=== PATIENT | female | born 1950 | race Caucasian/White ===

== ENCOUNTER → 2020-12-05 12:00 | Outpatient (CLI) | payer OTHER, SELFPAY ==
--- NOTE | 2020-12-05 12:08 | DI.US.S_ITS ---
PROCEDURE: US ABD AORTA ANEURYSM SCREEN INDICATIONS: SCREENING TECHNIQUE: Real time scanning was performed of the aorta and iliac arteries, with image documentation. COMPARISON: None. FINDINGS: Aorta: Proximal aortic diameter measures 2.1 cm. Mid-aorta measures 1.9 cm. Distal aortic diameter is 1.7 cm. Iliac arteries: Right common iliac artery measures 0.9 cm. Left common iliac artery measures 0.9 cm. IMPRESSION: Normal abdominal aortic aneurysm. Dictated by: Duncan Bangura M.D. on 12/05/2020 at 12:53 Approved by: Duncan Bangura M.D. on 12/05/2020 at 12:54
== END ==
PROVIDERS: PCP Student in an Organized Health Care Education/Training Program; Referring Provider Student in an Organized Health Care Education/Training Program; Visit Provider Student in an Organized Health Care Education/Training Program
DX: M85.832 Other specified disorders of bone density and structure, left forearm (principal); Z13.6 Encounter for screening for cardiovascular disorders; Z78.0 Asymptomatic menopausal state; F17.200 Nicotine dependence, unspecified, uncomplicated; Z82.62 Family history of osteoporosis
CPT/HCPCS: 76706; 77080; 77081

== ENCOUNTER 2022-10-24 21:14 | Observation (INO) | payer OTHER, MEDICAID, SELFPAY ==
[2022-10-24 21:17] VITALS: PULSE 92; RESP 21
--- NOTE | 2022-10-24 21:17 | ED.GENADULT ---
HPI - General Adult General Chief complaint: Seizure Stated complaint: seizure-postictal- fell right eye lac Time Seen by Provider: 10/24/22 21:17 Source: patient, family and EMS Mode of arrival: EMS Limitations: no limitations History of Present Illness HPI narrative: Patient is a 72-year-old female. Has not on anticoagulation. Has a history of COPD. Also has a history of seizures. At 1 point was under the care of a neurologist. Does take Tegretol for her seizures. Is now being managed by her primary doctor. His reported that this evening the patient had what appeared to be a generalized tonic-clonic seizure. She was at home with the time. She was sitting on a stool at home. She was with family who stated that she fell off the stool and landed on her right side. She did hit her head. Was no loss of bowel or bladder but she was postictal afterwards. Seizure did resolve on its own. When EMS arrived they found the patient confused but maintaining her airway. IV was started. Transported to the emergency department. No antiseizure medication administered by EMS. Related Data Allergies Allergy/AdvReac Type Severity Reaction Status Date / Time No Known Drug Allergies Allergy Verified 10/24/22 22:12 Review of Systems Review of Systems ROS Unobtainable: All systems reviewed & are unremarkable except as noted in HPI and below Patient History Medical History COPD (chronic obstructive pulmonary disease) Seizures Social History Smoking Status: Current every day smoker Exam Initial Vital Signs Initial Vital Signs: Vital Signs Pulse Rate 92 H 10/24/22 21:17 Respiratory Rate 21 10/24/22 21:17 Const General: comfortable and No ill appearing [facility] Head: laceration (Superior and lateral to right eye) Nose: external nose normal Face and sinus: normal facial exam Resp Effort & Inspection: normal respiratory effort Auscultation: clear to auscultation bilaterally Cardio Rate: regular rate Rhythm: regular rhythm GI Inspection: normal to inspection and non-distended Palpation: soft and No tender Back/Spine/Pelvis Cervical Spine: No cervical spinal tenderness Skin Other: 2 cm laceration to the forehead that is just superior lateral to the right eye. Neuro Other: Upon arrival patient was alert but not oriented to person or situation. She did move all 4 extremities. Extrem Other: Pelvis is stable. No gross deformities. Procedures Laceration Repair Laceration 1: Site: face Side (If applicable): right Size (cm): 2 Description: linear Depth: simple, single layer Skin layer closed with: dermabond Course Orders Ordered: ED Orders 10/24/22 21:14 Complete Blood Count AUTO DIFF Stat Comprehensive Metabolic Panel Stat Ethanol (ETOH) Stat Lipase Stat 10/24/22 21:23 CT cervical spine wo con Stat CT head/brain wo con Stat XR shoulder RT min 2V Stat 10/24/22 21:24 EKG-12 Lead Stat 10/24/22 21:31 XR chest 1V Stat 10/25/22 00:39 XR hip w pel if done RT 2V Stat 10/25/22 02:20 COVID19 -Nasal RAPID Stat 10/25/22 02:31 Consult to Physician Stat Consult to Physician Urgent Sodium Chloride (Normal Saline 0.9%) 1,000 mls @ 125 mls/hr IV CONT DEMETRIS Last Admin: 10/24/22 22:23 Dose: 125 mls/hr Documented By: LEO Morphine Sulfate (Morphine 2 Mg/Ml Inj) 2 mg IV Q4HR PRN PRN Reason: Pain, Moderate (4-6) Ondansetron HCl (Ondansetron 4 Mg/2 Ml Inj) 4 mg IV Q4HR PRN PRN Reason: Nausea And Vomiting Discontinued Medications Hydrocodone Bitart/Acetaminophen (Hydrocodone/Acet 5/325 Tablet) 1 tab PO NOW ONE Stop: 10/24/22 21:44 Last Admin: 10/24/22 21:58 Dose: 1 tab Documented By: LEO Hydrocodone Bitart/Acetaminophen (Hydrocodone/Acet 5/325 Tablet) 1 tab PO NOW ONE Stop: 10/24/22 23:04 Last Admin: 10/24/22 23:08 Dose: 1 tab Documented By: LEO POTASSIUM CHLORIDE IN WATER (Potassium Cl 10 Meq/100 Ml Claudia) 10 meq in 100 mls @ 100 mls/hr IV Q1H [facility] Stop: 10/25/22 00:14 Last Infusion: 10/25/22 00:12 Dose: 0 mls/hr Documented By: Admin: 10/24/22 23:12 Dose: 100 mls/hr Documented By: Infusion: 05/25/23 23:11 Dose: 0 mls/hr Documented By: Admin: 10/24/22 22:15 Dose: 100 mls/hr Documented By: LEO Vital Signs Vital signs: Vital Signs - 8 hr 10/24/22 21:22 10/24/22 21:17 10/24/22 21:19 Temperature 97.7 F Pulse Rate 99 H 92 H Respiratory Rate 22 21 Blood Pressure 137/77 137/77 Pulse Oximetry 88 L Oxygen Delivery Method Room Air 10/24/22 21:19 10/24/22 21:40 10/24/22 22:00 Temperature Pulse Rate 89 86 77 Respiratory Rate 22 18 Blood Pressure Pulse Oximetry 88 L 90 L 93 Oxygen Delivery Method 10/24/22 22:30 Temperature Pulse Rate 87 Respiratory Rate 28 H Blood Pressure Pulse Oximetry 95 Oxygen Delivery Method Medical Decision Making Lab Data Lab results reviewed: Yes I reviewed the patient's lab results. 10/24/22 21:14 10/24/22 21:14 Labs: Lab Results 10/24/22 10/24/22 10/25/22 Range/Units 21:14 21:14 02:20 WBC 10.6 (4.5-11.0) X10^3/uL RBC 3.68 L (4.0-5.2) X10^6/uL Hgb 13.5 (12.0-16.0) g/dL Hct 38.5 (36-46) % MCV 104.5 H (80-100) fL MCH 36.5 H (26-34) PG MCHC 35.0 (30-36) % RDW 14.4 (11.6-14.8) % Plt Count 309 (150-400) X10^3/uL Neut % (Auto) 50.4 (50-75) % Lymph % (Auto) 42.1 H (25-40) % Boyd % (Auto) 5.5 (3-14) % Eos % (Auto) 1.6 L (2-4) % Baso % (Auto) 0.4 (0-2) % Neut # (Auto) 5300 (4892-2650) /uL Lymph # (Auto) 4500 (2215-5364) /uL [place] # (Auto) 600 (0-900) /uL Eos # (Auto) 200 (0-450) /uL Baso # (Auto) 0 (0-100) /uL Sodium 133 L (137-145) mmol/L Potassium 2.9 L (3.4-5.1) mmol/L Chloride 97 L (98-107) mmol/L Carbon Dioxide 18 L (22-32) mmol/L BUN 7 (7-17) mg/dL Creatinine 0.49 L (0.52-1.04) mg/dL Estimated GFR > 60 (>60) mL/min BUN/Creatinine Ratio 14.3 (6-22) Glucose 147 H (80-110) mg/dL Calcium 9.1 (8.4-10.2) mg/dL Total Bilirubin 0.3 (0.2-1.3) mg/dL AST 27 (14-36) IU/L ALT 31 (<35) IU/L Alkaline Phosphatase 67 (38-126) U/L Total Protein 7.3 (6.3-8.2) g/dL Albumin 4.6 (3.5-5.0) g/dL Globulin 2.7 (1.7-4.1) g/dL Albumin/Globulin Ratio 1.7 (1.0-2.8) Lipase 131 (23-300) U/L Ethyl Alcohol < 10 ( - 10) mg/dL SARS-CoV-2 (PCR) Negative (Negative) Imaging Data CT - cervical spine: Radiologist's Impression: PROCEDURE:? CT CERVICAL SPINE WO CON ? INDICATIONS:? seizure ? TECHNIQUE:? Noncontrast 3 mm thick sections acquired from the skull base to the T4 level.? Sagittal and coronal reformats were then constructed.? For radiation dose reduction, the following was used:? automated exposure control, adjustment of mA and/or kV according to patient size.? ? COMPARISON:? None. ? FINDINGS:? Image quality:? Excellent.? ? Bones:? No fractures or subluxation.? There is minimal anterolisthesis at C3-C4.? Multilevel degenerative disc disease and facet joint arthropathy demonstrated throughout the cervical spine.? Visualized superior ribs are intact.? ? Soft tissues:? Prevertebral soft tissues are normal in thickness.? No paravertebral hematomas.? No apical pneumothoraces.? ? ? IMPRESSION:? ? 1. No acute fracture or subluxation. CT scan - head: Radiologist's Impression: PROCEDURE:? CT HEAD/BRAIN WO CON ? INDICATIONS:? seizure and hit head ? TECHNIQUE:? Noncontrast 4.5 mm thick angled axial sections acquired from the foramen magnum to the vertex, with coronal and sagittal reformats.? For radiation dose reduction, the following was used:? automated exposure control, adjustment of mA and/or kV according to patient size.? ? COMPARISON:? None. ? FINDINGS:? Image quality:? Excellent.? ? CSF spaces:? Basal cisterns are patent.? No extra-axial fluid collections.? There is mild to moderate cerebral volume loss, with resultant ventricular and sulcal prominence.? There is also prominence of the extra-axial spaces bilaterally.? ? Brain:? No intracranial hemorrhage, mass, or mass effect.? There are subcortical, periventricular and deep white matter hypodensities consistent with mild chronic small vessel ischemic changes.? The kincaid-white matter junction appears preserved. ? ? Skull and face:? Calvarium and visualized facial bones appear intact, without suspicious lesions.? ? Sinuses:? Visualized sinuses and mastoids are clear.? ? IMPRESSION:? ? 1. No acute intracranial abnormality. ? 2.? Mild to moderate cerebral volume loss and mild chronic white matter small vessel ischemic changes.? Extremity x-ray #1: Radiologist's Impression: PROCEDURE:? XR SHOULDER RT MIN 2V ? INDICATIONS:? seizure and pain ? TECHNIQUE:? 2 views of the shoulder were acquired.? ? COMPARISON:? None. ? FINDINGS:? ? Bones:? There is a mildly comminuted fracture of the distal clavicle.? There is slight subluxation at the acromioclavicular joint.? No suspicious bony lesions.? Visualized ribs appear intact.? ? Soft tissues:? No suspicious soft tissue calcifications.? ? IMPRESSION:? ? 1. Mildly comminuted fracture of the distal right clavicle with slight subluxation of the right AC joint. Chest x-ray: Radiologist's Impression: PROCEDURE:? XR CHEST 1V ? INDICATIONS:? pain after fall ? TECHNIQUE:? One view of the chest was acquired.? ? COMPARISON:? None. ? FINDINGS:? ? Surgical changes and devices:? None.? ? Lungs and pleura:? There is bilateral mild interstitial prominence.? No pleural effusions or pneumothorax.? ? Mediastinum:? Mediastinal contours appear normal.? Heart size is normal.? ? Bones and chest wall:? No suspicious bony lesions.? Overlying soft tissues appear unremarkable.? ? IMPRESSION:? ? 1. Mild interstitial prominence may represent interstitial pulmonary edema versus chronic interstitial lung disease. Extremity x-ray #2: Radiologist's Impression: ?wall ROCEDURE:? XR HIP W PEL IF DONE RT 2V ? INDICATIONS:? pain after fall ? TECHNIQUE:? AP pelvis with lateral view of the right hip. ? COMPARISON:? None. ? FINDINGS:? ? Bones:? There are mildly displaced fractures of the right superior and inferior pubic rami.? There is dysmorphic appearance of the right hip suggestive of hip dysplasia with severe osteoarthritic changes, including severe joint space narrowing, subchondral sclerosis and cystic changes, and modeling along the articular surfaces including flattening of the femoral head.? Collar osteophytosis also demonstrated.? Associated a or vascular necrosis is not excluded. ? Soft tissues:? The visualized bowel gas pattern is normal.? No suspicious soft tissue calcifications.? ? IMPRESSION:? ? 1. Mildly displaced fractures of the right superior and inferior pubic rami. ? 2. 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 Avascular necrosis is also not excluded.? ECG Data Attestation: I personally reviewed and interpreted this ECG as follows: Interpretation: Sinus rhythm Ventricular rate 84 Normal axis Normal QRS Normal QTC No ST T wave changes MDM Narrative Medical decision making narrative: Upon arrival patient was obviously postictal. She has had no seizure activity since arrival here to the ER. Family did arrive at bedside and it appears that at least for the past week she potentially has not been taking her nightly antiseizure medications. Patient states she just forgets to do this. She has become more alert and oriented since her time here. Her head CT and cervical spine CT are unremarkable. The laceration above her right eye was closed with Dermabond and Steri-Strips per her request. She did not want any stitches. She does have a right distal clavicle fracture. Attempted to stand the patient at bedside however she did have severe right hip discomfort. X-ray was then obtained which shows a superior and inferior pubic rami fracture. Patient is unable to stand secondary to pain despite pain medication here in the ER. Given her other injury she does require admission to the hospital. I did discuss the case with Dr. Weber who is on-call for the patient's primary doctor. We will admit for further evaluation and treatment. I did discuss this with the patient and family at bedside. They expressed understanding and agreement as well. Discharge Plan Departure Patient Disposition: Admitted as Observation Clinical Impression: Generalized seizure, Fracture of clavicle, Fracture of superior ramus of right pubis, Fracture of right inferior pubic ramus, Laceration Admit Date/Time: 10/25/22 02:31 Admit Provider: Stanley Corona
[2022-10-24 21:19] VITALS: BP 137/77; PULSE 89; RESP 22; O2SAT 88
[2022-10-24 21:22] VITALS: BP 137/77; PULSE 99; RESP 22; TEMP 36.5; O2SAT 88
--- NOTE | 2022-10-24 21:23 | DI.CT.S_ITS ---
PROCEDURE: CT CERVICAL SPINE WO CON INDICATIONS: seizure TECHNIQUE: Noncontrast 3 mm thick sections acquired from the skull base to the T4 level. Sagittal and coronal reformats were then constructed. For radiation dose reduction, the following was used: automated exposure control, adjustment of mA and/or kV according to patient size. COMPARISON: None. FINDINGS: Image quality: Excellent. Bones: No fractures or subluxation. There is minimal anterolisthesis at C3-C4. Multilevel degenerative disc disease and facet joint arthropathy demonstrated throughout the cervical spine. Visualized superior ribs are intact. Soft tissues: Prevertebral soft tissues are normal in thickness. No paravertebral hematomas. No apical pneumothoraces. IMPRESSION: 1. No acute fracture or subluxation. Dictated by: Brett Escobar M.D. on 10/24/2022 at 21:58 Approved by: Brett Escobar M.D. on 10/24/2022 at 21:59
--- NOTE | 2022-10-24 21:23 | DI.CT.S_ITS ---
PROCEDURE: CT HEAD/BRAIN WO CON INDICATIONS: seizure and hit head TECHNIQUE: Noncontrast 4.5 mm thick angled axial sections acquired from the foramen magnum to the vertex, with coronal and sagittal reformats. For radiation dose reduction, the following was used: automated exposure control, adjustment of mA and/or kV according to patient size. COMPARISON: None. FINDINGS: Image quality: Excellent. CSF spaces: Basal cisterns are patent. No extra-axial fluid collections. There is mild to moderate cerebral volume loss, with resultant ventricular and sulcal prominence. There is also prominence of the extra-axial spaces bilaterally. Brain: No intracranial hemorrhage, mass, or mass effect. There are subcortical, periventricular and deep white matter hypodensities consistent with mild chronic small vessel ischemic changes. The kincaid-white matter junction appears preserved. Skull and face: Calvarium and visualized facial bones appear intact, without suspicious lesions. Sinuses: Visualized sinuses and mastoids are clear. IMPRESSION: 1. No acute intracranial abnormality. 2. Mild to moderate cerebral volume loss and mild chronic white matter small vessel ischemic changes. Dictated by: Brett Escobar M.D. on 10/24/2022 at 21:56 Approved by: Brett Escobar M.D. on 10/24/2022 at 21:58
--- NOTE | 2022-10-24 21:23 | DI.RAD.S_ITS ---
PROCEDURE: XR SHOULDER RT MIN 2V INDICATIONS: seizure and pain TECHNIQUE: 2 views of the shoulder were acquired. COMPARISON: None. FINDINGS: Bones: There is a mildly comminuted fracture of the distal clavicle. There is slight subluxation at the acromioclavicular joint. No suspicious bony lesions. Visualized ribs appear intact. Soft tissues: No suspicious soft tissue calcifications. IMPRESSION: 1. Mildly comminuted fracture of the distal right clavicle with slight subluxation of the right AC joint. Dictated by: Brett Escobar M.D. on 10/24/2022 at 22:38 Approved by: Brett Escobar M.D. on 10/24/2022 at 22:38
[2022-10-24 21:30] LABS: Add Manual Diff / Slide Review NO; Basophils Absolute Auto 0 /uL (0-100); Basophils Percent Auto 0.4 % (0-2); Eosinophils Absolute Auto 200 /uL (0-450); Eosinophils Percent Auto 1.6 % (2-4); Hematocrit 38.5 % (36-46); Hemoglobin 13.5 g/dL (12.0-16.0); Lymphocytes Absolute Auto 4500 /uL (1100-4500); Lymphocytes Percent Auto 42.1 % (25-40); Mean Corpuscular Hemoglobin 36.5 PG (26-34); Mean Corpuscular Volume 104.5 fL (80-100); Monocytes Absolute Auto 600 /uL (0-900); Monocytes Percent Auto 5.5 % (3-14); Neutrophils Absolute Auto 5300 /uL (1500-7000); Neutrophils Percent Auto 50.4 % (50-75); Platelet Count 309 X10^3/uL (150-400); Red Blood Cell Count 3.68 X10^6/uL (4.0-5.2); Red Cell Distribution Width 14.4 % (11.6-14.8); White Blood Cell Count 10.6 X10^3/uL (4.5-11.0)
--- NOTE | 2022-10-24 21:31 | DI.RAD.S_ITS ---
PROCEDURE: XR CHEST 1V INDICATIONS: pain after fall TECHNIQUE: One view of the chest was acquired. COMPARISON: None. FINDINGS: Surgical changes and devices: None. Lungs and pleura: There is bilateral mild interstitial prominence. No pleural effusions or pneumothorax. Mediastinum: Mediastinal contours appear normal. Heart size is normal. Bones and chest wall: No suspicious bony lesions. Overlying soft tissues appear unremarkable. IMPRESSION: 1. Mild interstitial prominence may represent interstitial pulmonary edema versus chronic interstitial lung disease. Dictated by: Brett Escobar M.D. on 10/24/2022 at 22:39 Approved by: Brett Escobar M.D. on 10/24/2022 at 22:39
[2022-10-24 21:40] VITALS: PULSE 86; O2SAT 90
[2022-10-24 21:41] LABS: Albumin 4.6 g/dL (3.5-5.0); Albumin Globulin Ratio 1.7 (1.0-2.8); Alkaline Phosphatase 67 U/L (38-126); Aspartate Aminotransferase 27 IU/L (14-36); BUN Creatinine Ratio 14.3 (6-22); Bilirubin Total 0.3 mg/dL (0.2-1.3); Blood Urea Nitrogen 7 mg/dL (7-17); Calcium 9.1 mg/dL (8.4-10.2); Carbon Dioxide 18 mmol/L (22-32); Chloride 97 mmol/L (98-107); Estimated Glomerular Filt Rate > 60 mL/min (>60); Ethanol (ETOH) < 10 mg/dL; Globulin 2.7 g/dL (1.7-4.1); Glucose 147 mg/dL (80-110); HEMOLYSIS < 15 (0-50); Lipase 131 U/L (23-300); Potassium 2.9 mmol/L (3.4-5.1); Sodium 133 mmol/L (137-145); Total Protein 7.3 g/dL (6.3-8.2)
[2022-10-24 21:47] LABS: Alanine Aminotransferase 31 IU/L (<35)
[2022-10-24] MEDS: HYDROCODONE/ACET 5/325 TABLET 1 TAB PO ×2 (21:58→23:08)
[2022-10-24 22:00] VITALS: PULSE 77; RESP 18; O2SAT 93
[2022-10-24] MEDS: POTASSIUM CHLORIDE IN WATER 10 MEQ/100 ML PIGGYBACK 100 MEQ IV ×2 (22:15→23:12)
[2022-10-24] MEDS: SODIUM CHLORIDE 0.9% 1,000 ML 125 ML IV (22:23)
[2022-10-24 22:30] VITALS: PULSE 87; RESP 28; O2SAT 95
--- NOTE | 2022-10-25 00:39 | DI.RAD.S_ITS ---
P wall ROCEDURE: XR HIP W PEL IF DONE RT 2V INDICATIONS: pain after fall TECHNIQUE: AP pelvis with lateral view of the right hip. COMPARISON: None. FINDINGS: Bones: There are mildly displaced fractures of the right superior and inferior pubic rami. There is dysmorphic appearance of the right hip suggestive of hip dysplasia with severe osteoarthritic changes, including severe joint space narrowing, subchondral sclerosis and cystic changes, and modeling along the articular surfaces including flattening of the femoral head. Collar osteophytosis also demonstrated. Associated a or vascular necrosis is not excluded. Soft tissues: The visualized bowel gas pattern is normal. No suspicious soft tissue calcifications. IMPRESSION: 1. Mildly displaced fractures of the right superior and inferior pubic rami. 2. 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 Avascular necrosis is also not excluded. Dictated by: Brett Escobar M.D. on 10/25/2022 at 1:59 Approved by: Brett Escobar M.D. on 10/25/2022 at 2:02
[2022-10-25 02:37] LABS: COVID19 -Nasal RAPID Negative (Negative)
[2022-10-25 03:20] VITALS: BP 144/72; PULSE 74; RESP 16; TEMP 37.2; O2SAT 93
[2022-10-25 03:38] VITALS: BMI 19.2
[2022-10-25] MEDS: MORPHINE 2 MG/ML INJ IV ×2 (03:48→08:22)
[2022-10-25] MEDS: SODIUM CHLORIDE 0.9% 1,000 ML 125 ML IV (03:58)
[2022-10-25 08:32] VITALS: BP 152/74; PULSE 72; RESP 16; TEMP 37.1; O2SAT 91
--- NOTE | 2022-10-25 10:46 | CM.DANOTE ---
Addendum entered by EDISON Oshea 10/26/22 13:58: ADD: Confirmed with Tracy at [facility] that they accept patient's [facility] Addendum entered by EDISON Oshea 10/25/22 11:03: ADD: Ortho consult note in; fractures nonoperative. Hip - WBAT to RLE Original Note: Initial DCP Assessment Note Patient is a 72 yo F presents from her home after a witnessed seizure and subsequent fall, now with hip and shoulder fx per imaging Information gleaned from ER report and from patient, no H+P currently PCP [facility] Payer [facility] Met w/patient to introduce self and role, patient A+Ox4. 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 Patient had been living in [place] working for [employer] until transferring to [facility] to be closer to her children and grandchildren Patient retired a year ago and has been living w/her family since that time. Patient receives approx $1,000 in mo and uses food stamps to assist w/cost of food Patient hopes to return home w/her family but admits daughter is on disability r/t a severe car accident a year ago resulting in brain surgery and ongoing neck problems. 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 If patient is recommended for SNF stay, a pre-auth will be required through [facility] and therapy notes will need to document patient's need for SNF ...We are going into a long holiday weekend now so Friday would be the soonest for this process to begin EDISON Still Discharge Planning/Care Management CM Discharge Assessment Start: 10/25/22 10:42 Freq: Status: Active Protocol: Document 10/25/22 10:43 ZEKE (Rec: 10/25/22 10:46 ZEKE [id number]) Discharge Planning Assessment Assigned Licsw EDISON Bravo DPOA/Assigned Designee Name jorge l Orr Contact Information [phone] Advance Directives? Yes Advance Directives on File No History Provided By Patient,Medical Record Prior Living Arrangements House Household Members children Type of transporation used prior to Drives own vehicle admit Independent with ADL's Yes Is patient alert and oriented? Yes Comment TBD Barriers to Discharge Yes Comment New fractures from fall Transportation Arrangement TBD
--- NOTE | 2022-10-25 10:52 | P.CONS_ITS ---
History of Present Illness Consult details Date Patient Seen: 10/25/22 Time Patient Seen: 10:52 Chief complaint: seizure-postictal- fell right eye lac Reason for consult: clavicle fx, pelvic fx Narrative: 72 yo female w/ seizure history was sitting at home on a barstool watching a sporting event, game ended and she doesn't remember anything after that. Witnesses say she had a seizure and fell. W/u in ED positive for right clavicle fx and right superior and inferior rami fxs. Pt currently sitting up in bed, c/o right arm pain. Meds Home Medications and Allergies Home Medications Medication Instructions Recorded Confirmed Type carbamazepine 200 mg tablet 200 mg PO 2XD 10/25/22 10/25/22 History fluoxetine 20 mg capsule 20 mg PO QAM 10/25/22 10/25/22 History levothyroxine 88 mcg tablet 88 mcg PO QAM 10/25/22 10/25/22 History potassium chloride 10 mEq 10 meq PO DAILY 10/25/22 10/25/22 History tablet,extended release pravastatin 40 mg tablet 40 mg PO DAILY 10/25/22 10/25/22 History Allergies Allergy/AdvReac Type Severity Reaction Status Date / Time No Known Drug Allergies Allergy Verified 10/24/22 22:12 Review of Systems Review of Systems ROS: Yes All systems reviewed with the patient and are negative except as otherwise documented Exam Vital Signs (past 8 hours): - 10/25/22 03:20 10/25/22 03:38 10/25/22 08:32 Temperature 99.0 F 98.8 F Pulse Rate 74 72 Respiratory Rate 16 16 Blood Pressure 144/72 H 152/74 H Pulse Oximetry 93 91 Oxygen Delivery Method Room Air Oxygen Flow Rate 0 Oxygen Delivery Method Room Air Oxygen Flow Rate 0 Narrative Exam Narrative: 3/5 hip flexion, 4/5 quadriceps, hamstrings, 5/5 DF, PF, EHL on right. Sensation to light touch intact throughout RLE. No obvious RLE deformity or b ruising noted. 5/5 plasterer helper strength, biceps, triceps, deltoids on R. Bruising noted along R distal clavicle. Sensation to light touch intact throughout RUE. Const General: cooperative and comfortable Nutritional Appearance: underweight Orientation: alert, awake and oriented x3 Eyes Other: Laceration above right lateral orbit. Objective Labs 10/24/22 21:14 10/24/22 21:14 Labs: Laboratory Results - last 24 hr 10/24/22 10/24/22 10/25/22 21:14 21:14 02:20 WBC 10.6 RBC 3.68 L Hgb 13.5 Hct 38.5 MCV 104.5 H MCH 36.5 H MCHC 35.0 RDW 14.4 Plt Count 309 Neut % (Auto) 50.4 Lymph % (Auto) 42.1 H [place] % (Auto) 5.5 Eos % (Auto) 1.6 L Baso % (Auto) 0.4 Neut # (Auto) 5300 Lymph # (Auto) 4500 [place] # (Auto) 600 Eos # (Auto) 200 Baso # (Auto) 0 Sodium 133 L Potassium 2.9 L Chloride 97 L Carbon Dioxide 18 L BUN 7 Creatinine 0.49 L Estimated GFR > 60 BUN/Creatinine Ratio 14.3 Glucose 147 H Calcium 9.1 Total Bilirubin 0.3 AST 27 ALT 31 Alkaline Phosphatase 67 Total Protein 7.3 Albumin 4.6 Globulin 2.7 Albumin/Globulin Ratio 1.7 Lipase 131 Ethyl Alcohol < 10 SARS-CoV-2 (PCR) Negative [facility] Medical History COPD (chronic obstructive pulmonary disease) Seizures Social History household members: children Tobacco & Substance Use Smoking Status: Current every day smoker alcohol intake: former Assessment & Plan Assessment and plan (1) Fracture of clavicle: Status: Acute Plan: Continue sling for comfort. Discussed w/ Dr Hernandez - nonoperative. F/u in office w/ Dr Hernandez for repeat imaging and symptom exam 2 weeks after discharge. (2) Fracture of superior ramus of right pubis: Status: Acute Plan: WBAT to RLE. Consult physical therapy. Discussed w/ Dr Hernandez - nonoperative. F/u in office w/ Dr Hernandez for repeat imaging and symptom exam 2 weeks after discharge. (3) Fracture of right inferior pubic ramus: Status: Acute Plan: As above. Please reconsult orthopedic surgery if needed during this hospitalization.
[2022-10-25] MEDS: carBAMazepine XR 100 MG TAB 400 MG PO ×2 (10:57→20:45)
[2022-10-25] MEDS: PRAVASTATIN 20 MG TABLET 40 MG PO (10:58)
[2022-10-25] MEDS: FLUoxetine 20 MG CAPSULE PO (10:58)
[2022-10-25] MEDS: POTASSIUM CHLORIDE 10 MEQ TAB PO (10:58)
[2022-10-25] MEDS: ENOXAPARIN 40 MG/0.4 ML SYRINGE SUBCUT (10:58)
[2022-10-25] MEDS: ACETAMINOPHEN 325 MG TABLET 650 MG PO ×2 (11:48→17:30)
--- NOTE | 2022-10-25 12:42 | OT.IP.EVAL ---
Current Diagnoses Fracture of superior rim of right pubis, initial encounter for closed fracture (10/25/22) Other specified fracture of right pubis, initial encounter for closed fracture (10/25/22) Fracture of unspecified part of unspecified clavicle, initial encounter for closed fracture (10/25/22) Past Medical History (Last Reviewed 10/25/22 @ 02:58 by Andrea Wells DO) COPD (chronic obstructive pulmonary disease) Seizures Occupational Therapy Inpatient Evaluation/Re-Eval M1 PT/OT-IP Prior Functional Status Start: 10/25/22 11:29 Freq: NEEDED Status: Complete Protocol: Document 10/25/22 12:33 ES (Rec: 10/25/22 12:55 ES [id number]) Medical Review Prior Functional Status Medical History Reviewed Yes Communication Indep Mobility and Gait Indep without AD Activities of Daily Living and IADL's Indep Prior Functional Level (Other details) Able to drive Social History Household Members children Living Arrangements House Number of Floors (Floors) Two Floors Number of Stairs To Enter/Railing? 4 WAI without rails. 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 Daugher is on disability, the SO works out of the house during the day. They are planning to move to another house in October. M1 PT/OT-IP Prior Functional Status Start: 10/25/22 13:39 Freq: NEEDED Status: Active Protocol: Document 10/25/22 12:00 [facility] (Rec: 10/25/22 14:03 [facility] [id number]) Medical Review Prior Functional Status Medical History Reviewed Yes Communication Indep Mobility and Gait Indep without AD Activities of Daily Living and IADL's Indep Prior Functional Level (Other details) Able to drive Social History Household Members children Living Arrangements House Number of Floors (Floors) Two Floors Number of Stairs To Enter/Railing? 4 WAI without rails. 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 Home Environment Standard Height Toilet,Tub/ Shower Home Equipment Hand Held Shower,Grab Bars In Shower Employment Status Retired Additional Social History Comment Lives with daughter and daughter's SO. Daughter is on disability, the SO works out of the house during the day. They are planning to move to another house in October. M2 OT-IP Current Condition Start: 10/25/22 13:39 Freq: Status: Active Protocol: Document 10/25/22 12:00 [facility] (Rec: 10/25/22 14:03 [facility] [id number]) Occupational Therapy Current Condition Current Condition Evaluation Date 10/25/22 Treatment Diagnosis Right Clavicle fx, Right pelvic fx Diagnosis Onset Date 10/25/22 Post Operative Precautions Shoulder Precautions Sling Weight Bearing Status Allowed Weight Bearing Amount (enter % WBAT for RLE, sling for or #) (%) comfort per PA. M3 OT- IP Subjective and Pain Start: 10/25/22 13:39 Freq: Status: Active Protocol: Document 10/25/22 12:00 [facility] (Rec: 10/25/22 14:03 [facility] [id number]) OT- Subjective Occupational Therapy Visit Type Type Initial Evaluation Visit Start Time 12:00 Visit Stop Time 12:42 Total Visit Minutes 42 Occupational Therapy Visit Comments Patient Comments Pt agreeing to get up. Patient/Caregiver Goals To go home. OT Pain Assessment Pain When Pain Assessed At Rest Pain Present Pain Present Pain Reported Location Right Shoulder Intensity 7 Scale Used Numeric (0 - 10) M4 OT- IP ADL's Start: 10/25/22 13:39 Freq: Status: Active Protocol: Document 10/25/22 12:00 [facility] (Rec: 10/25/22 14:03 [facility] [id number]) OT [id number] Comments OT Self-Feeding Comments Pt will need assist for set-up . OT ADL-Grooming Comments OT Grooming Comments Pt will need assist to help brush her hair. OT ADL-Oral Care Comments Oral Care Comments Not performed. OT ADL-Dressing General Eval Upper Body Dressing Ability Maximum Assistance Comments OT Dressing Comments Pt will need assist for brief and pants. Able to get a larger size sling for the pt inorder to fit her right arm better for support. OT ADL-Toileting Comments OT Toileting Comments Suggested pt to get a BSC for home use. OT ADL-Bathing Comments OT Bathing Comments Suggested to sponge off and get a shower chair. M5 OT- IP IADL's Start: 10/25/22 13:39 Freq: Status: Active Protocol: Document 10/25/22 12:00 [facility] (Rec: 10/25/22 14:03 [facility] [id number]) OT-Instrumental Activities of Daily Living Deficits IADL Deficits Identified Deficits Home Safety Awareness Awareness of Need for Assistance at Home Good Awareness M6 OT- IP Functional Cognition Start: 10/25/22 13:39 Freq: Status: Active Protocol: Document 10/25/22 12:00 [facility] (Rec: 10/25/22 14:03 [facility] [id number]) Cognitive Factors Limiting Selfcare Function Cognitive Ability Level of Alertness Alert Patient Orientation Name,Place,Situation Attention Span Ability Capable of Focused Attention, Capable of Sustained Attention Ability to Follow Commands Able to Follow One Step Commands Cognitive Comments Cognitive Assessment Comments Pt able to follow commands for mobility needs however seemed to focus on the house set up for the new place she will be moving to in October. OT- Vision and Hearing OT- Hearing Assessment OT- Hearing Assessment WFL M7 OT- IP Mobility and Balance Start: 10/25/22 13:39 Freq: Status: Active Protocol: Document 10/25/22 12:00 [facility] (Rec: 10/25/22 14:03 [facility] [id number]) OT- Bed Mobility Assessment Supine to Sit Supine to Sit Assist Standby Assistance OT-Transfer Assessment Sit to and From Stand Sit to and from Stand Minimal Assistance Transfers Transfer Ability Minimal Assistance Technique Transfer Destination Bed,Chair Transfer Technique Stand Step Pivot Devices Transfer Assistive Devices Avila Walker Comments Mobility Comments Pt needing assist to help guide the hemiwalker and CGA for balance. Suggested pt may need a wc for longer distances . OT- Balance Assessment Sitting Balance and Reactions Static Sitting Balance Ability Normal Dynamic Sitting Balance Ability Good Standing Balance and Reactions Static Standing Balance Ability Fair Dynamic Standing Balance Ability Fair M8 OT- IP Objective Assessments Start: 10/25/22 13:39 Freq: Status: Active Protocol: Document 10/25/22 12:00 [facility] (Rec: 10/25/22 14:03 [facility] [id number]) OT Gross Range of Motion Upper Extremity Range of Motion ROM Impairments NT due to right clavicle FX, encouraged pt to more her right arm from elbow to distal . OT Strength Upper Extremity Strength Assessment Right Impaired M9 OT- IP Assessment and Plan Start: 10/25/22 13:39 Freq: Status: Active Protocol: Document 10/25/22 12:00 [facility] (Rec: 10/25/22 14:03 [facility] [id number]) OT Summary Assessment and Plan Potential Rehabilitation Potential Good Analytic Complexity at Evaluation Moderate Summary OT Impairments Pain,Strength,Balance, Functional Mobility,Grooming, Dressing,Toileting,Bathing, Toilet Transfers,Shower Transfers,Activity Tolerance Progress Towards Goals Slow Progress due to Pain,Slow Progress due to Activity Tolerance Assessment Summary Pt MOD complexity due to pain, steps, and now needing device to walk with and would benefit from 24/7 available assist but not 1:1 assist and home health. Pt is insistent on not going to skilled rehab. Goals Grooming Goal Independent Dressing Goal Minimal Assistance Toileting Goal Independent Bathing Goal Independent Toilet Transfer Goal Minimal Assistance Shower Transfer Goal Independent Patient/Caregiver Education Goal Caregiver Independent Assisting Patient Days to Meet Goals 7 Frequency of Treatment Frequency Of Treatment Once a Day Treatment Plan OT Treatment Plan ADL Training,Functional Mobility,Patient/Family Education,Discharge Planning Discharge Recommendations OT Discharge Recommendations Home with 24/7 Assist Available,Home Health Home Equipment Needs wheelchair, BSC, avila-walker, market survey representative Transportation Needs at Discharge Private Vehicle
--- NOTE | 2022-10-25 12:55 | PT.IIE ---
Current Diagnoses Fracture of superior rim of right pubis, initial encounter for closed fracture (10/25/22) Other specified fracture of right pubis, initial encounter for closed fracture (10/25/22) Fracture of unspecified part of unspecified clavicle, initial encounter for closed fracture (10/25/22) Medical History (Last Reviewed 10/25/22 @ 02:58 by Andrea Wells DO) COPD (chronic obstructive pulmonary disease) Seizures Physical Therapy Inpatient Evaluation/Re-Eval M1 PT/OT-IP Prior Functional Status Start: 10/25/22 11:29 Freq: NEEDED Status: Active Protocol: Document 10/25/22 12:33 ES (Rec: 10/25/22 12:55 ES [id number]) Medical Review Prior Functional Status Medical History Reviewed Yes Communication Indep Mobility and Gait Indep without AD Activities of Daily Living and IADL's Indep Prior Functional Level (Other details) Able to drive Social History Household Members children Living Arrangements House Number of Floors (Floors) Two Floors Number of Stairs To Enter/Railing? 4 WAI without rails. 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 Employment Status Retired Additional Social History Comment Lives with cheryle and daughter's LUCA. Cheryle is on disability, the SO works out of the house during the day. They are planning to move to another house in October. M2 PT-IP Current Condition Start: 10/25/22 11:29 Freq: NEEDED Status: Active Protocol: Document 10/25/22 12:33 ES (Rec: 10/25/22 12:55 ES [id number]) Physical Therapy Current Condition Current Condition Evaluation Date 10/25/22 Treatment Diagnosis Seizure; fall; R clavicle fx; R pubic ramus fracture Onset Date 10/24/22 M3 PT-IP Subjective Start: 10/25/22 11:29 Freq: NEEDED Status: Active Protocol: Document 10/25/22 12:33 ES (Rec: 10/25/22 12:55 ES [id number]) Subjective Physical Therapy Visit Type Type Initial Evaluation Visit Start Time 12:00 Visit Stop Time 12:30 Total Visit Minutes 30 Notes OT present Physical Therapy Visit Comments Patient Comments Patient alert in bed, agreeable to work with therapy . Reported minimal pain in R shoulder and pelvis/hip in bed , though endorsed headache. M4 PT-IP Mobility and Gait Start: 10/25/22 11:29 Freq: NEEDED Status: Active Protocol: Document 10/25/22 12:33 ES (Rec: 10/25/22 12:55 ES [id number]) PT-Bed Mobility Assessment Supine to Sit Supine to Sit Standby Assistance,Head of Bed Elevated,Bedrails Scooting Scooting to Edge of Bed Standby Assistance PT-Transfer Assessment Sit to and From Stand Sit to and from Stand Contact Guard Assistance,Use of Upper Extremities Equipment Transfer Assistive Device Gait Belt,Avila Walker Transfers Transfer Destination Chair Transfer Technique Stand Step Pivot Transfer Ability Level of Assist Minimal Assistance,Use of Upper Extremities Comments Mobility Comments Patient transferred to L side of bed with HOB elevated ~30 degrees and use of upper rail. Able to perform without use of RUE. Transferred to recliner toward L side with difficulty clearing R foot off of floor due to pain. Decreased WB tolerance on RLE. Assist needed for moving hemiwalker laterally. PT-Balance Assessment Sitting Balance and Reactions Static Sitting Balance Ability Normal Dynamic Sitting Balance Ability Normal Standing Balance and Reactions Static Standing Balance Ability Good Dynamic Standing Balance Ability Fair Device Used Avila walker M5 PT-IP Objective Assessments Start: 10/25/22 11:29 Freq: NEEDED Status: Active Protocol: Document 10/25/22 12:33 ES (Rec: 10/25/22 12:55 ES [id number]) Orientation Orientation/Cognition Level of Alertness Alert Orientation Name,Age,Birthday,Month,Date, Year,Day of Week,Place, Situation Language Function Ability No Deficits Noted Safety Awareness Understands Safety Issues Memory Description No Deficits Noted Gross Range of Motion Upper Extremity ROM Assessment Right Impaired Impairments RUE in sling, LUE WFL Lower Extremity ROM Assessment Within Functional Limits Strength Upper Extremity Strength Assessment Right Impaired Shoulder DNT Elbow Able to move against gravity Wrist Able to move against gravity Hand WFL Lower Extremity Strength Assessment Right Impaired Comments Strength Comments RLE not tested due to pelvic fracture. Able to move knee and ankle against gravity. Coordination Assessment Gross Coordination Gross Coordination WNL M6 PT-IP Treatment Start: 10/25/22 11:29 Freq: NEEDED Status: Active Protocol: Document 10/25/22 12:33 ES (Rec: 10/25/22 12:55 ES [id number]) Physical Therapy Treatment Education Education Provided Precautions,Weight Bearing Status,Safety Other Treatments Other Treatment Performed Recommended patient have her family put her recliner downstairs to sleep in and have BSC initially to make it easier to get up to go to the bathroom. M7 PT-IP Assessment and Plan Start: 10/25/22 11:29 Freq: NEEDED Status: Active Protocol: Document 10/25/22 12:33 ES (Rec: 10/25/22 12:55 ES [id number]) PT Summary Assessment and Plan Potential Rehabilitation Potential Good Status of Condition at Evaluation Stable Summary Impairments Pain,Strength,Balance, Transfers,Gait,Activity Tolerance Assessment Summary Patient is a 72 year old female who presents with impaired functional mobility due to presence of R clavicle and pubic ramus fracture. She was able to get up to a chair using hemiwalker, though slowly and with decreased WB RLE due to pain. She declined stronger pain medication prior to treament and will likely perform better with more pain control. She will benefit from further skilled PT to increase independence with mobility to be able to return home safely and to advise on equipment recommendations. Goals Bed Mobility Goal Independent Transfer Goal Independent Gait Goal Independent,Avila Walker Gait Distance 30 Other Goals Patient will be able to perform all transfers and gait with LRAD (hemiwalker vs cane ). Patient will be able to ascend /descend 4 stairs with LRAD and CGA. Days to Meet Goals 7 Frequency of Treatment Frequency Of Treatment Twice a Day Treatment Plan Physical Therapy Treatment Plan Bed Mobility Training,Transfer Training,Gait Training, Therapeutic Exercise,Discharge Planning,Hot or Cold Pack Other Recommendations and Next Treatment Pre-medicate. Progress Focus ambulation as tolerated. Will need stair training. Precautions Shoulder Precautions Sling Weight Bearing Status Weight Bearing Status Weight Bear as Tolerated Allowed Weight Bearing Amount (enter % WBAT RLE or #) (%) Recommendations To Nursing Amount of Assist Needed 1 Person Assist Discharge Recommendations PT Discharge Recommendations Home with Assistance,Home Health Equipment Needed for Home Before Hemiwalker vs cane, possibly w Discharge /c, BSC Transportation Needs at Discharge Private Vehicle
--- NOTE | 2022-10-25 13:29 | PC.NURSE ---
Day shift: Notified Jer at MD Harrell's office asking for MD Harrell to put in orders for Nicotine patch and to discontinue bedrest order and change activity order to as tolerated. PT and OT have seen her. Will continue to monitor.
--- NOTE | 2022-10-25 14:10 | PT.IPTN ---
Current Diagnoses Fracture of superior rim of right pubis, initial encounter for closed fracture (10/25/22) Other specified fracture of right pubis, initial encounter for closed fracture (10/25/22) Fracture of unspecified part of unspecified clavicle, initial encounter for closed fracture (10/25/22) Physical Therapy Treatment Note M2 PT-IP Current Condition Start: 10/25/22 11:29 Freq: NEEDED Status: Active Protocol: Document 10/25/22 12:33 ES (Rec: 10/25/22 12:55 ES [id number]) Physical Therapy Current Condition Current Condition Evaluation Date 10/25/22 Treatment Diagnosis Seizure; fall; R clavicle fx; R pubic ramus fracture Onset Date 10/24/22 M3 PT-IP Subjective Start: 10/25/22 11:29 Freq: NEEDED Status: Active Protocol: Document 10/25/22 14:36 TS (Rec: 10/25/22 14:51 TS [id number]) Subjective Physical Therapy Visit Type Type Treatment Note Visit Start Time 14:10 Visit Stop Time 14:28 Total Visit Minutes 18 Physical Therapy Visit Comments Patient Comments Pt would like to get back to bed, agreeable to PT. M4 PT-IP Mobility and Gait Start: 10/25/22 11:29 Freq: NEEDED Status: Active Protocol: Document 10/25/22 14:36 TS (Rec: 10/25/22 14:51 TS [id number]) PT-Bed Mobility Assessment Sit to Supine Sit to Supine Standby Assistance Scooting Scooting Up and Down in Bed Standby Assistance PT-Transfer Assessment Sit to and From Stand Sit to and from Stand Contact Guard Assistance,Use of Upper Extremities Equipment Transfer Assistive Device Gait Belt,Avila Walker Comments Mobility Comments Pt found resting in chair, agreeable to PT. Sit to stand x1 CGA, provided cues for LUE support on avila-walker, pt attempting to use RUE. She ambulated ~40' in room CGA/SBA w/ hemiwalker with slow step to gait, TT on RLE, x1 LOB able to correct with use of hemiwalker. Sit to supine SBA with LUE handrail assist, she scooted to HOB SBA with LUE and BLE. PT was left in bed with call light nearby, all needs met. Gait Assessment Gait Gait Assistance Required: Standby Assistance,Contact Guard Assist Distance (Feet) 40 Assistive Devices Assistive Device Gait Belt,Avila Walker Gait Deviations General Gait Pattern Antalgic,Decreased Stride Length,Decreased Feet Clearance,Step-to Gait Factors Limiting Gait Function Factors Limiting Gait Function Decreased Activity Tolerance, Decreased Strength,Limited Range of Motion,Pain,Poor Balance Comments Gait Comments See mobility comments. Stair Climbing Assessment Comments Stair Climbing Comments Not assessed at this time. PT-Balance Assessment Sitting Balance and Reactions Static Sitting Balance Ability Normal Dynamic Sitting Balance Ability Normal Standing Balance and Reactions Static Standing Balance Ability Good Dynamic Standing Balance Ability Fair Device Used Avila walker Comments Other Balance Tests/Deviations/Treatment X1 LOB with ambulation, able : to correct with use of hemiwalker. M5 PT-IP Objective Assessments Start: 10/25/22 11:29 Freq: NEEDED Status: Active Protocol: Document 10/25/22 12:33 ES (Rec: 10/25/22 12:55 ES [id number]) Orientation Orientation/Cognition Level of Alertness Alert Orientation Name,Age,Birthday,Month,Date, Year,Day of Week,Place, Situation Language Function Ability No Deficits Noted Safety Awareness Understands Safety Issues Memory Description No Deficits Noted Gross Range of Motion Upper Extremity ROM Assessment Right Impaired Impairments RUE in sling, LUE WFL Lower Extremity ROM Assessment Within Functional Limits Strength Upper Extremity Strength Assessment Right Impaired Shoulder DNT Elbow Able to move against gravity Wrist Able to move against gravity Hand WFL Lower Extremity Strength Assessment Right Impaired Comments Strength Comments RLE not tested due to pelvic fracture. Able to move knee and ankle against gravity. Coordination Assessment Gross Coordination Gross Coordination WNL M6 PT-IP Treatment Start: 10/25/22 11:29 Freq: NEEDED Status: Active Protocol: Document 10/25/22 14:36 TS (Rec: 10/25/22 14:51 TS [id number]) Physical Therapy Treatment Education Education Provided Precautions,Weight Bearing Status,Safety M7 PT-IP Assessment and Plan Start: 10/25/22 11:29 Freq: NEEDED Status: Active Protocol: Document 10/25/22 14:36 TS (Rec: 10/25/22 14:51 TS [id number]) PT Summary Assessment and Plan Potential Rehabilitation Potential Good Summary Impairments Pain,Strength,Balance, Transfers,Gait,Activity Tolerance Progress Towards Goals Progressing Toward Goals Assessment Summary Pt is progressing well with her mobility this session. She was CGA for sit to stand with hemiwalker, required cues for LUE support only. She progressed her ambulation to ~ 40' in room CGA/SBA with slow step to gait TT on RLE, did have x1LOB was able to correct with use of hemiwalker. PT is recommending home with assist from family and HHPT. Pt will need to complete 4 steps prior to d/c. Therapist will attempt to setup caregiver training for tomorrow morning. Goals Bed Mobility Goal Independent Transfer Goal Independent Gait Goal Independent,Avila Walker Gait Distance 30 Other Goals Patient will be able to perform all transfers and gait with LRAD (hemiwalker vs cane ). Patient will be able to ascend /descend 4 stairs with LRAD and CGA. Days to Meet Goals 7 Frequency of Treatment Frequency Of Treatment Twice a Day Treatment Plan Physical Therapy Treatment Plan Bed Mobility Training,Transfer Training,Gait Training, Therapeutic Exercise,Discharge Planning,Hot or Cold Pack Other Recommendations and Next Treatment Pre-medicate. Progress Focus ambulation as tolerated. Will need stair training. Precautions Shoulder Precautions Sling Weight Bearing Status Weight Bearing Status Weight Bear as Tolerated Allowed Weight Bearing Amount (enter % WBAT RLE or #) (%) Recommendations To Nursing Amount of Assist Needed 1 Person Assist Discharge Recommendations PT Discharge Recommendations Home with Assistance,Home Health Equipment Needed for Home Before Hemiwalker vs cane, possibly w Discharge /c, BSC Transportation Needs at Discharge Private Vehicle
--- NOTE | 2022-10-25 15:35 | PT-IP ANOTE ---
Attempted to contact jorge l Cassidy for caregiver training for tomorrow 10/26 @11:00AM, left message.
--- NOTE | 2022-10-25 18:44 | PM.HP.1 ---
History of Present Illness History of Present Illness Date Patient Seen: 10/25/22 Time Patient Seen: 18:44 Date of Onset of Symptoms: 10/24/22 Chief complaint: seizure-postictal- fell right eye lac Narrative: Patient is a 72-year-old female who presents after having been watch to follow off stool and falling to the floor hitting her head and her hip. Cause of fall was a seizure. She went into grand mal and has had a history of seizures. Patient is not the greatest medication taker. Apparently does not always take her evening dose but takes her usual dose. Is good at taking her morning dose. No other changes. Patient otherwise feels well. Has no complaints except for her shoulder and her pubis. She has otherwise had no change in her mental status. She is had no fevers no chills no nausea no vomiting. Has otherwise been feeling pretty good she might be getting a cold she thought maybe yesterday because her daughter had 1 she lives with her daughter now. Recently retired. No other changes. [facility] Medical History COPD (chronic obstructive pulmonary disease) Seizures Social History household members: children Smoking Status: Current every day smoker alcohol intake: former Meds Home Medications and Allergies Home Medications Medication Instructions Recorded Confirmed Type carbamazepine 200 mg tablet 200 mg PO 2XD 10/25/22 10/25/22 History fluoxetine 20 mg capsule 20 mg PO QAM 10/25/22 10/25/22 History levothyroxine 88 mcg tablet 88 mcg PO QAM 10/25/22 10/25/22 History potassium chloride 10 mEq 10 meq PO DAILY 10/25/22 10/25/22 History tablet,extended release pravastatin 40 mg tablet 40 mg PO DAILY 10/25/22 10/25/22 History Allergies Allergy/AdvReac Type Severity Reaction Status Date / Time No Known Drug Allergies Allergy Verified 10/24/22 22:12 Review of Systems Review of Systems Narrative: See above all negative Exam Vital Signs (past 8 hours): Oxygen Delivery Method Room Air Oxygen Flow Rate 0 Narrative Exam Narrative: Alert female sitting in bed with sling over right shoulder. HEENT exam shows the laceration repair on right upper orbit. Otherwise nonfocal and nontraumatic. Oral mucosa is unremarkable neck supple without adenopathy nontender lungs are clear heart is regular rate and rhythm tenderness over right clavicle. Abdomen is benign pain with pressure on her hips extremities without cyanosis clubbing edema. Neurologic exam is nonfocal Objective Labs 10/24/22 21:14 10/24/22 21:14 Labs: Laboratory Results - last 24 hr 10/24/22 10/24/22 10/25/22 21:14 21:14 02:20 WBC 10.6 RBC 3.68 L Hgb 13.5 Hct 38.5 MCV 104.5 H MCH 36.5 H MCHC 35.0 RDW 14.4 Plt Count 309 Neut % (Auto) 50.4 Lymph % (Auto) 42.1 H Stafford % (Auto) 5.5 Eos % (Auto) 1.6 L Baso % (Auto) 0.4 Neut # (Auto) 5300 Lymph # (Auto) 4500 Stafford # (Auto) 600 Eos # (Auto) 200 Baso # (Auto) 0 Sodium 133 L Potassium 2.9 L Chloride 97 L Carbon Dioxide 18 L BUN 7 Creatinine 0.49 L Estimated GFR > 60 BUN/Creatinine Ratio 14.3 Glucose 147 H Calcium 9.1 Total Bilirubin 0.3 AST 27 ALT 31 Alkaline Phosphatase 67 Total Protein 7.3 Albumin 4.6 Globulin 2.7 Albumin/Globulin Ratio 1.7 Lipase 131 Ethyl Alcohol < 10 SARS-CoV-2 (PCR) Negative Assessment & Plan Assessment & Plan narrative: Pelvis fracture. Patient will be ambulated and will see how she does. If she is able to mobilize will send home with pain control. No other changes. Appreciate orthopedist evaluation. Does not appear to be surgical. Will be mostly slow improvement and pain control. PT OT evaluation today placement depending on results Right clavicle fracture. Usual care with immobilization slow improvement. No other changes. History of seizure disorder. Active. Seizure precautions. Restart her medication. Wonder if she can be looked at for a longer acting carbamazepine and see if that would actually make a difference see if we can get away with once a day dosing. Patient stable at this time. Will be followed by her usual outpatient doctor. History of smoking will place patch. History of depression. Continue fluoxetine. History of hypo thyroidism. Continue usual meds. History of hyperlipidemia. Continue pravastatin. Code status full. DVT prophylaxis will place on Lovenox. Disposition. Hopefully home tomorrow depending on response. Will see how things go. 75 minutes spent with patient emergency room physician social service reviewing chart orders and dictation
[2022-10-25 19:00] VITALS: BP 143/66; PULSE 72; RESP 14; TEMP 36.7; O2SAT 93
[2022-10-25] MEDS: SODIUM CHLORIDE 0.9% FLUSH 10 ML IV (20:45)
--- NOTE | 2022-10-25 22:24 | PC.NURSE ---
Patient is alert and oriented. Breath sounds CTA with RA sat of 93%. Has moist sounding cough which she reports is a chronic smoker's cough sometimes productive of white sputum. HRR. Denies nausea. BT present and is passing flatus. Indwelling catheter is patent; urine is clear, light oni. Is able to move herself in bed. When up is using quad cane with 1 assist. Right UE is in a sling and CMS is intact. States pain is minimal at 2/10 and declines pain medication. Refusing SCD's so reminded to ankle wave. Seizure pads on bed. Fall risk score is high and bed alarm is activated.
[2022-10-26 07:45] VITALS: BP 166/68; PULSE 85; RESP 22; TEMP 36.6; O2SAT 88
--- NOTE | 2022-10-26 08:02 | P.DS_ITS ---
History of Present Illness History of Present Illness Chief complaint: seizure-postictal- fell right eye lac Discharge Providers Provider Date of admission: 10/25/22 02:31 Discharge Date: 10/26/22 Primary care physician: Nabila Meyers MD Consults: 10/25/22 08:50 Consult to Discharge Planning Routine Comment: Consult to Occupational Therapy Evaluate & Treat Comment: Physician Instructions: Evaluate and treat Consult to Physical Therapy Evaluate & Treat Comment: Physician Instructions: Evaluate and Treat Consult to Physician Routine Comment: Consulting Provider: Sindy Hernandez Reason for consultation: pelvic and clavicle fracture Has provider been notified: Yes Discharge provider: Josep Jackson MD Summary Hospital Course Discharge Diagnosis: Grand mal seizure Fall with acute pathologic pelvis fracture Clavicle fracture Acute urinary retention due to pain and pelvic fracture Moderate to severe COPD oxygen levels low in the hospital chronically low not on home oxygen Hypothyroidism Hypokalemia Hyperlipidemia Major depression Hospital Course: Patient admitted to the hospital patient was sitting on a bar stool had a grand mal seizure which was witnessed patient has a history of seizure disorder. Apparently was not regularly taking medication as prescribed. Patient fell off the stool and was evaluated in the emergency department patient was found to have a clavicle fracture pelvis fracture patient was admitted the hospital because of difficulty with ambulation due to pelvic fracture pain urinary dysfunction shoulder immobilization and seizure concerns. Patient was admitted to the hospital had laboratory testing done. She was placed on potassium replacement. She was given a nicotine patch started on DVT prophylaxis she had an orthopedic consultation and evaluation physical therapy evaluation. Patient's pain was controlled Tylenol and hydrocodone. Patient during hospital stay was eating. With assistance of physical therapy patient was able to ambulate. During hospital stay her oxygen level was low. She was placed on nasal cannula oxygen she has a lifelong smoking history and probably has moderate to severe COPD could be oxygen dependent. The time of discharge Jones catheter was removed she was ambulating. Physical therapy had cleared here. Patient has a safe discharge plan. Patient will follow up with Orthopedics and her primary care physician patient was counseled the importance of taking her seizure medication. Exam Vital Signs (past 8 hours): - 10/26/22 07:45 Oxygen Delivery Method Nasal Cannula Oxygen Delivery Method Nasal Cannula Oxygen Flow Rate 0 Objective Labs 10/24/22 21:14 10/24/22 21:14 [facility] Medical History COPD (chronic obstructive pulmonary disease) Seizures Social History household members: children Smoking Status: Current every day smoker alcohol intake: former Discharge Plan Discharge Plan Patient Disposition: Home Provider Discharge Comment: wt bearing as tolerated f/u with ortho and dr Corona 1 week Discharge orders & Medications Prescriptions: New acetaminophen 325 mg Tablet 650 mg PO Q6H PRN (Reason: Fever/Mild Pain (1-3)) Qty: 30 0RF hydrocodone-acetaminophen 5-325 mg Tablet 1 tab PO Q6-12H PRN (Reason: Pain, Moderate (4-6)) Qty: 20 0RF Continued fluoxetine 20 mg capsule 20 mg PO QAM Patient Comments: TAKE 1 CAPSULE BY MOUTH EVERY DAY levothyroxine 88 mcg tablet 88 mcg PO QAM Patient Comments: TAKE 1 TABLET BY MOUTH EVERY DAY potassium chloride 10 mEq tablet extended release 10 meq PO DAILY Patient Comments: TAKE 1 TABLET BY MOUTH EVERY DAY pravastatin 40 mg tablet 40 mg PO DAILY Patient Comments: TAKE 1 TABLET BY MOUTH EVERY NIGHT carbamazepine 200 mg tablet 200 mg PO 2XD Patient Comments: TAKE 2 TABLETS BY MOUTH TWICE DAILY Follow up/Referrals: Nabila Meyers MD [Primary Care Provider] - fAia Flores MD [Physician] - Visit Report/Discharge Packet Instructions: How to Use a Sling, DI for Clavicle Fracture-Adult, DI for Seizure Disorder -- Adult Stand Alone Forms: Patient Portal/API, Stroke Signs & Symptoms Discharge Data Primary Care Provider: Nabila Meyers Attending Provider: Stanley Corona Date/Time: 10/25/22 02:31
[2022-10-26] MEDS: ACETAMINOPHEN 325 MG TABLET 650 MG PO (09:45)
[2022-10-26] MEDS: carBAMazepine XR 100 MG TAB 400 MG PO (09:45)
[2022-10-26] MEDS: PRAVASTATIN 20 MG TABLET 40 MG PO (09:45)
[2022-10-26] MEDS: ENOXAPARIN 40 MG/0.4 ML SYRINGE SUBCUT (09:46)
[2022-10-26] MEDS: POTASSIUM CHLORIDE 10 MEQ TAB PO (09:46)
[2022-10-26] MEDS: NICOTINE 21 MG PATCH TOP (09:46)
[2022-10-26] MEDS: FLUoxetine 20 MG CAPSULE PO (09:46)
--- NOTE | 2022-10-26 11:11 | PT.IPTN ---
Current Diagnoses Fracture of superior rim of right pubis, initial encounter for closed fracture (10/25/22) Other specified fracture of right pubis, initial encounter for closed fracture (10/25/22) Fracture of unspecified part of unspecified clavicle, initial encounter for closed fracture (10/25/22) Physical Therapy Treatment Note M2 PT-IP Current Condition Start: 10/25/22 11:29 Freq: NEEDED Status: Active Protocol: Document 10/25/22 12:33 ES (Rec: 10/25/22 12:55 ES [id number]) Physical Therapy Current Condition Current Condition Evaluation Date 10/25/22 Treatment Diagnosis Seizure; fall; R clavicle fx; R pubic ramus fracture Onset Date 10/24/22 M3 PT-IP Subjective Start: 10/25/22 11:29 Freq: NEEDED Status: Active Protocol: Document 10/26/22 12:09 TS (Rec: 10/26/22 12:30 TS [id number]) Subjective Physical Therapy Visit Type Type Treatment Note Visit Start Time 11:11 Visit Stop Time 11:40 Total Visit Minutes 29 Notes Family present for caregiver training. Number of RECEPTIONIST/TELEPHONE OPERATOR Visits 2 Physical Therapy Visit Comments Patient Comments Pt found resting in chair, agreeable to PT. M4 PT-IP Mobility and Gait Start: 10/25/22 11:29 Freq: NEEDED Status: Active Protocol: Document 10/26/22 12:09 TS (Rec: 10/26/22 12:30 TS [id number]) PT-Transfer Assessment Sit to and From Stand Sit to and from Stand Minimal Assistance,Use of Upper Extremities Equipment Transfer Assistive Device Gait Belt,Straight Cane Orthotic/Prosthetic Devices or Brace: No Comments Mobility Comments Pt found resting in chair, agreeable to PT. Sit to stand x1 [place] with SPC, provided cues for LUE support. She ambulated ~125' CGA with SPC some swaying, provided cues for 3 point gait, no buckling or LOB. Sit to stand from w/c Orlando with SPC. She performed stairs x6 [place] w/ LUE hand assist from therapist, provided cues for step sequencing. Pt was brought back to room to bedside chair with call light nearby, family in room waiting to speak with PROBATION AGENT. Gait Assessment Gait Gait Assistance Required: Contact Guard Assist Distance (Feet) 125 Assistive Devices Assistive Device Gait Belt,Straight Cane Gait Deviations General Gait Pattern Antalgic,Decreased Stride Length,Decreased Feet Clearance,Step-to Gait Factors Limiting Gait Function Factors Limiting Gait Function Decreased Activity Tolerance, Decreased Strength,Limited Range of Motion,Pain,Poor Balance Comments Gait Comments See mobility comments. Stair Climbing Assessment Evaluation Level of Assist On Stairs Minimal Assistance Devices Stair Climbing Assistive Devices Left Railing Technique/Endurance Stair Climbing Direction Ascend and Descend Stair Climbing Technique Step to Step Number of Steps Climbed 6 Comments Stair Climbing Comments See mobility. PT-Balance Assessment Sitting Balance and Reactions Static Sitting Balance Ability Normal Dynamic Sitting Balance Ability Normal Standing Balance and Reactions Static Standing Balance Ability Good Dynamic Standing Balance Ability Fair Device Used SPC M5 PT-IP Objective Assessments Start: 10/25/22 11:29 Freq: NEEDED Status: Active Protocol: Document 10/25/22 12:33 ES (Rec: 10/25/22 12:55 ES [id number]) Orientation Orientation/Cognition Level of Alertness Alert Orientation Name,Age,Birthday,Month,Date, Year,Day of Week,Place, Situation Language Function Ability No Deficits Noted Safety Awareness Understands Safety Issues Memory Description No Deficits Noted Gross Range of Motion Upper Extremity ROM Assessment Right Impaired Impairments RUE in sling, LUE WFL Lower Extremity ROM Assessment Within Functional Limits Strength Upper Extremity Strength Assessment Right Impaired Shoulder DNT Elbow Able to move against gravity Wrist Able to move against gravity Hand WFL Lower Extremity Strength Assessment Right Impaired Comments Strength Comments RLE not tested due to pelvic fracture. Able to move knee and ankle against gravity. Coordination Assessment Gross Coordination Gross Coordination WNL M6 PT-IP Treatment Start: 10/25/22 11:29 Freq: NEEDED Status: Active Protocol: Document 10/26/22 12:09 TS (Rec: 10/26/22 12:30 TS [id number]) Physical Therapy Treatment Education Education Provided Precautions,Weight Bearing Status,Safety Other Treatments Other Treatment Performed Discussed benefits of getting w/c, SPC and commode. M7 PT-IP Assessment and Plan Start: 10/25/22 11:29 Freq: NEEDED Status: Active Protocol: Document 10/26/22 12:09 TS (Rec: 10/26/22 12:30 TS [id number]) PT Summary Assessment and Plan Potential Rehabilitation Potential Good Summary Impairments Pain,Strength,Balance, Transfers,Gait,Activity Tolerance Progress Towards Goals Progressing Toward Goals Assessment Summary Pt progressed to use of SPC with Orlando for sit to stand x1. She increased her ambulation distance to ~125' with SPC CGA , required education on proper gait sequencing with SPC. She performed stairs x6 with LUE hand assist form therapist Orlando, required cues for proper sequencing. PT recommends return home with 24/7 assist from family. Provided education to family on the benefits of using a w/c, commode and SPC. Family does not currently have access to these devices but will attempt to get a hold of them today. Family requesting pt to stay one more day before she discharges home to gather proper DME. Reported to family PROBATION AGENT will speak to them about d/c. Goals Bed Mobility Goal Independent Transfer Goal Independent Gait Goal Independent,Avila Walker Gait Distance 30 Other Goals Patient will be able to perform all transfers and gait with LRAD (hemiwalker vs cane ). Patient will be able to ascend /descend 4 stairs with LRAD and CGA. Days to Meet Goals 7 Frequency of Treatment Frequency Of Treatment Twice a Day Treatment Plan Physical Therapy Treatment Plan Bed Mobility Training,Transfer Training,Gait Training, Therapeutic Exercise,Discharge Planning,Hot or Cold Pack Other Recommendations and Next Treatment Pre-medicate. Progress Focus ambulation as tolerated. Will need stair training. Precautions Shoulder Precautions Sling Weight Bearing Status Weight Bearing Status Weight Bear as Tolerated Allowed Weight Bearing Amount (enter % WBAT RLE or #) (%) Recommendations To Nursing Amount of Assist Needed 1 Person Assist Discharge Recommendations PT Discharge Recommendations Home with Assistance,Home Health Equipment Needed for Home Before Hemiwalker vs cane, possibly w Discharge /c, BSC Transportation Needs at Discharge Private Vehicle
--- NOTE | 2022-10-26 13:38 | CM.DPNOTE ---
Addendum entered by EDISON Oshea 10/26/22 14:19: ADD: H+P and DC Summary included in the referral to [facility] Original Note: DC Note Patient discharged home today w/family to assist and HH; therapy has cleared patient for this plan Patient's daughter and KARLA in to pick patient up; patient sitting up in her chair and eager to return home, has a sling on her right arm. Reviewed HH agency choices via [employer] IPAD and patient/family ask that [facility] be contacted Emailed this referral to Tracy at [place], [email or web address], requested RN/PT/OT Plan: Discharge home w/family, [facility] services, family planning to find a wheelchair for patient's use at home JW
[2022-10-26] MEDS: HYDROCODONE/ACET 5/325 TABLET 1 TAB PO (14:32)
--- NOTE | 2022-10-29 11:59 | CM.DPNOTE ---
Late entry: December from [facility] called to say they could Accept this patient for services. Kari Sharma CM [employer].
== END 2022-10-26 15:15 | disposition home or self-care (01) ==
LOC: ED 10-25 02:25 → AC 10-25 02:33
PROVIDERS: Admitting Provider Family Medicine; Emergency Provider Emergency Medicine; PCP Student in an Organized Health Care Education/Training Program; Visit Provider Family Medicine
DX: G40.409 Other generalized epilepsy and epileptic syndromes, not intractable, without status epilepticus (principal); S42.031A Displaced fracture of lateral end of right clavicle, initial encounter for closed fracture; S32.511A Fracture of superior rim of right pubis, initial encounter for closed fracture; S32.591A Other specified fracture of right pubis, initial encounter for closed fracture; R33.9 Retention of urine, unspecified; E03.9 Hypothyroidism, unspecified; E78.5 Hyperlipidemia, unspecified; E87.6 Hypokalemia; W07.XXXA Fall from chair, initial encounter; Y92.009 Unspecified place in unspecified non-institutional (private) residence as the place of occurrence of the external cause; J44.9 Chronic obstructive pulmonary disease, unspecified; F32.A Depression, unspecified; Z20.822 Contact with and (suspected) exposure to COVID-19
CPT/HCPCS: 36415; 70450; 71045; 72125; 73030; 73502; 80053; 80320; 83690; 85025; 87635; 93005; 93010; 96365; 96366; 96372; 96375; 96376; 97116; 97162; 97166; 97530; 99238; 99284; C9803; G0378; J1650; J2270

== ENCOUNTER → 2023-05-01 08:25 | Outpatient (CLI) | payer OTHER, MEDICAID, SELFPAY ==
[2023-05-01 09:07] LABS: Alanine Aminotransferase 9 IU/L (<35); Albumin 4.4 g/dL (3.5-5.0); Albumin Globulin Ratio 1.5 (1.0-2.8); Alkaline Phosphatase 97 U/L (38-126); Aspartate Aminotransferase 19 IU/L (14-36); BUN Creatinine Ratio 24.4 (6-22); Bilirubin Total 0.5 mg/dL (0.2-1.3); Blood Urea Nitrogen 10 mg/dL (7-17); Calcium 9.3 mg/dL (8.4-10.2); Carbon Dioxide 28 mmol/L (22-32); Chloride 95 mmol/L (98-107); Cholesterol 189 mg/dL (140-199); Estimated Glomerular Filt Rate > 60 mL/min (>60); Glucose 110 mg/dL (80-110); HDL Cholesterol 89 mg/dL (40-60); HEMOLYSIS < 15 (0-50); LDL Cholesterol Calculated 89 mg/dL (<100); Potassium 4.1 mmol/L (3.4-5.1); Sodium 128 mmol/L (137-145); Total Protein 7.4 g/dL (6.3-8.2); Triglycerides 56 mg/dL (35-150)
[2023-05-01 09:36] LABS: TSH w/ Reflex to FT4 1.18 uIU/mL (0.47-4.68)
[2023-05-01 10:12] LABS: Folate 2.4 ng/mL (2.76-20.0); Vitamin B12 Reflex MMA if <400 232 pg/mL (239-931)
[2023-05-05 08:43] LABS: Methylmalonic Acid,Serum 131 nmol/L (0-378)
== END ==
PROVIDERS: PCP Family Medicine; Referring Provider Pediatrics; Visit Provider Pediatrics
DX: G40.909 Epilepsy, unspecified, not intractable, without status epilepticus (principal); E78.5 Hyperlipidemia, unspecified; Z86.39 Personal history of other endocrine, nutritional and metabolic disease; D75.89 Other specified diseases of blood and blood-forming organs
CPT/HCPCS: 36415; 80053; 80061; 82607; 82746; 83921; 84443

== ENCOUNTER → 2024-02-09 11:56 | Outpatient (CLI) | payer MEDICARE, MEDICAID, SELFPAY ==
[2024-02-09 13:35] LABS: Add Manual Diff / Slide Review NO; Basophils Absolute Auto 0 /uL (0-100); Basophils Percent Auto 0.2 % (0-2); Eosinophils Absolute Auto 0 /uL (0-450); Eosinophils Percent Auto 0.1 % (2-4); Hematocrit 38.6 % (36-46); Hemoglobin 13.7 g/dL (12.0-16.0); Lymphocytes Absolute Auto 900 /uL (1100-4500); Lymphocytes Percent Auto 16.1 % (25-40); Mean Corpuscular HGB Conc 35.5 % (30-36); Mean Corpuscular Hemoglobin 34.4 PG (26-34); Monocytes Absolute Auto 100 /uL (0-900); Monocytes Percent Auto 2.3 % (3-14); Neutrophils Absolute Auto 4500 /uL (1500-7000); Neutrophils Percent Auto 81.3 % (50-75); Platelet Count 320 X10^3/uL (150-400); Red Blood Cell Count 3.98 X10^6/uL (4.0-5.2); Red Cell Distribution Width 14.1 % (11.6-14.8); White Blood Cell Count 5.5 X10^3/uL (4.5-11.0)
[2024-02-09 13:58] LABS: Alanine Aminotransferase 10 IU/L (<35); Albumin 4.4 g/dL (3.5-5.0); Albumin Globulin Ratio 1.7 (1.0-2.8); Alkaline Phosphatase 111 U/L (38-126); Aspartate Aminotransferase 23 IU/L (14-36); Bilirubin Total 0.4 mg/dL (0.2-1.3); Blood Urea Nitrogen 8 mg/dL (7-17); Calcium 9.3 mg/dL (8.4-10.2); Carbon Dioxide 25 mmol/L (22-32); Chloride 87 mmol/L (98-107); Estimated Glomerular Filt Rate > 60 mL/min (>60); Globulin 2.6 g/dL (1.7-4.1); Glucose 117 mg/dL (80-110); HEMOLYSIS < 15 (0-50); Potassium 4.7 mmol/L (3.4-5.1); Sodium 122 mmol/L (137-145)
[2024-02-09 14:03] LABS: NT-proBNP (BNP-Adult 18+) 170 pg/mL (<125)
[2024-02-09 14:24] LABS: Thyroid Stimulating Hormone 1.68 uIU/mL (0.47-4.68)
== END ==
PROVIDERS: PCP Family Medicine; Referring Provider Family Medicine; Visit Provider Family Medicine
DX: E87.1 Hypo-osmolality and hyponatremia (principal); F17.209 Nicotine dependence, unspecified, with unspecified nicotine-induced disorders; J44.9 Chronic obstructive pulmonary disease, unspecified; H91.90 Unspecified hearing loss, unspecified ear; G40.909 Epilepsy, unspecified, not intractable, without status epilepticus; E03.9 Hypothyroidism, unspecified
CPT/HCPCS: 36415; 80053; 83880; 84443; 85025

== ENCOUNTER → 2024-05-05 14:03 | Outpatient (CLI) | payer MEDICARE, MEDICAID, SELFPAY ==
[2024-05-05 15:28] LABS: BUN Creatinine Ratio 18.4 (6-22); Blood Urea Nitrogen 9 mg/dL (7-17); Calcium 8.9 mg/dL (8.4-10.2); Carbon Dioxide 28 mmol/L (22-32); Chloride 94 mmol/L (98-107); Estimated Glomerular Filt Rate > 60 mL/min (>60); Glucose 99 mg/dL (80-110); HEMOLYSIS < 15 (0-50); Potassium 4.3 mmol/L (3.4-5.1); Sodium 124 mmol/L (137-145)
[2024-05-07 03:36] LABS: Carbamazepine Tegretol Level 9.7 ug/mL (4.0-12.0)
== END ==
PROVIDERS: PCP Family Medicine; Referring Provider Psychiatry & Neurology Neurology; Visit Provider Psychiatry & Neurology Neurology
DX: G40.309 Generalized idiopathic epilepsy and epileptic syndromes, not intractable, without status epilepticus (principal); E87.1 Hypo-osmolality and hyponatremia
CPT/HCPCS: 36415; 80048; 80156

== ENCOUNTER 2024-08-01 15:13 | Emergency (ER) | payer MEDICARE, MEDICAID, SELFPAY ==
[2024-08-01] VITALS (31 sets, daily range): BP systolic 109–152; BP diastolic 57–87; PULSE 79–106; RESP 14–22; TEMP 36.3–37.5; O2SAT 88–100
--- NOTE | 2024-08-01 15:17 | DI.CT.S_ITS ---
PROCEDURE: CT HEAD/BRAIN WO CON INDICATIONS: seizure x 2, hx seizure d/o atypical pattern TECHNIQUE: Noncontrast 4.5 mm thick angled axial sections acquired from the foramen magnum to the vertex, with coronal and sagittal reformats. For radiation dose reduction, the following was used: automated exposure control, adjustment of mA and/or kV according to patient size. COMPARISON: [facility], CT, CT HEAD/BRAIN WO CON, 10/24/2022, 21:29. FINDINGS: Image quality: Diagnostic. CSF spaces: Basal cisterns are patent. No extra-axial fluid collections. Ventricles are normal in size and shape. Brain: No midline shift. No intracranial masses or hemorrhage. Jurado-white matter interface is normal. Skull and face: Calvarium and visualized facial bones are intact, without suspicious lesions. Sinuses: Visualized sinuses and mastoids are clear. IMPRESSION: No acute intracranial pathology. Moderate atrophy and chronic ischemic change Dictated by: Rafat Cook M.D. on 08/01/2024 at 15:00 Approved by: Rafat Cook M.D. on 08/01/2024 at 15:01
--- NOTE | 2024-08-01 15:18 | EKG_ITS ---
[place] [id number] [place] [id number] Test Date: 2024-08-01 Pat Name: Princess Spencer Department: [facility] Room: Gender: Female Senior Instrumentation Engineer: MARLENE : 1950 Requested By: Order Number: [id number] Reading MD: Bari Dewitt Measurements Intervals Cataldo Rate: 87 P: 64 MS: 174 QRS: -34 QRSD: 82 T: 47 QT: 374 QTc: 450 Interpretive Statements Normal sinus rhythm Left axis deviation Anteroseptal infarct , age undetermined Electronically Signed On 08-01-2024 18:58:17 PST by Bari Dewitt
--- NOTE | 2024-08-01 15:20 | ED_ITS ---
HPI - Seizure General Chief Complaint: Seizure Stated Complaint: Seizure Time Seen by Provider: 08/01/24 15:17 Source: family, RN notes reviewed and old records reviewed Mode of arrival: EMS Limitations: altered mental status History of Present Illness HPI Narrative: 74-year-old female history of COPD, history of seizure disorder reportedly taking her medications daily. Patient had what sounds like witnessed seizure activity today lasted about a minute was postictal per EMS was starting to have some improvement in mentation and then had recurrent seizure activity just as she was arriving. Patient has not received anything a route received 5 mg of Versed with EMS just as she arrived. Had visualize seizure activity for a proximally 1-2 minutes here in the department. Patient's glucose was 99 in the field. No reports of recent infections or other changes recently. Patient lives with family but they are not present. That is reported patient has not had a seizure in a couple years. Related Data Previous Rx's Medication Instructions Recorded acetaminophen 325 mg tablet 650 mg (2 x 325 mg) PO Q6H PRN 10/26/22 Fever/Mild Pain (1-3) #30 tabs hydrocodone 5 mg-acetaminophen 325 1 tab PO Q6-12H PRN Pain, Moderate 10/26/22 mg tablet (4-6) #20 tabs mecobalamin (vitamin B12) 10,000 1,000 mcg IM .weekly #1 ea 05/23/23 mcg solution for injection albuterol sulfate 90 mcg/actuation 2 puff inhalation Q6-8H #8.5 grams 02/09/24 aerosol inhaler insulin syringe-needle U-100 0.3 #100 ea 02/09/24 mL 30 gauge x 5/16 (Advocate Syringes) potassium chloride 10 mEq 10 meq PO DAILY #30 tabs 02/09/24 tablet,extended release pravastatin 40 mg tablet 40 mg PO DAILY #90 tabs 02/16/24 carbamazepine 200 mg tablet 200 mg PO 2XD #60 tabs 04/21/24 fluticasone propionate 45 2 puff inhalation BID #12 grams 06/25/24 mcg-salmeterol 21 mcg/actuation HFA inhaler (Advair HFA) alendronate 70 mg tablet 70 mg PO QWEEK #14 tabs 07/20/24 fluoxetine 20 mg capsule 20 mg PO QAM #90 caps 02/18/25 levothyroxine 88 mcg tablet 88 mcg PO QAM #90 tabs 07/20/24 Allergies Allergy/AdvReac Type Severity Reaction Status Date / Time No Known Drug Allergies Allergy Verified 02/09/24 11:35 Review of Systems Review of Systems ROS Unobtainable: Unobtainable due to medical condition Patient History Medical History Rheumatoid arthritis Hyperlipidemia Increased MCV Healing laceration History of hypokalemia Seizure disorder Seizures COPD (chronic obstructive pulmonary disease) (~2022) Social History household members: children Smoking Status: Current every day smoker alcohol intake: former Smoking Status: Current every day smoker tobacco type: cigarettes alcohol intake frequency: other Exam Narrative Exam Narrative: GEN: Thin elderly appearing female, patient has active tonic-clonic movement on exam, unresponsive, breathing independently. HEENT: Atraumatic, pupils are equal round reactive to light, eyes are to the right upper, nares are clear, TMs are clear with no fluid, there is no conjunctival pallor. Throat is clear without any exudates, erythema, tonsillar enlargement or uvular deviation HEART: Regular rate and rhythm without murmur, clicks, rubs. Pulses are equal in upper and lower extremities LUNGS:Lungs clear to auscultation, no wheezes, rales, crackles, chest moves symmetrically ABD:bowel sounds normal, soft, non-tender, no guarding, rebound, rigidity, no masses noted, no hepatosplenomegaly :No CVA tenderness MSCL: Non-tender, no muscle atrophy. NEURO:CN 2-12 intact, sensation normal. SKIN: No rash, erythema or other skin changes appreciated. Initial Vital Signs Initial Vital Signs: Vital Signs Blood Pressure 150/87 H 08/01/24 15:19 Course Orders Ordered: Discontinued Medications Sodium Chloride (Normal Saline 0.9%) 1,000 mls @ 1,000 mls/hr IV BOLUS ONE Stop: 08/01/24 16:16 Last Infusion: 08/01/24 17:05 Dose: Infused Documented By: Admin: 08/01/24 15:58 Dose: 1,000 mls/hr Documented By: DORCAS Levetiracetam 1,000 mg/ Sodium (Chloride) 110 mls @ 440 mls/hr IV NOW ONE Stop: 08/01/24 15:18 Last Infusion: 08/01/24 15:47 Dose: Infused Documented By: Admin: 08/01/24 15:23 Dose: 440 mls/hr Documented By: MAIRA Ceftriaxone Sodium 1,000 mg/ (Sodium Chloride) 100 mls @ 200 mls/hr IV NOW ONE Stop: 08/01/24 16:46 Last Infusion: 08/01/24 18:00 Dose: Infused Documented By: Admin: 08/01/24 17:25 Dose: 200 mls/hr Documented By: DORCAS Ondansetron HCl (Ondansetron 4 Mg/2 Ml Inj) 4 mg IV NOW ONE Stop: 08/01/24 15:18 Last Admin: 08/01/24 15:24 Dose: 4 mg Documented By: MAIRA Vital Signs Vital signs: Vital Signs - 8 hr 08/01/24 15:19 08/01/24 15:20 08/01/24 15:20 Temperature Pulse Rate 100 H Respiratory Rate 19 Blood Pressure 150/87 H 145/83 H Pulse Oximetry 94 Oxygen Delivery Method Oxygen Flow Rate 08/01/24 15:25 08/01/24 15:25 08/01/24 15:27 Temperature Pulse Rate 99 H 99 H Respiratory Rate 20 19 Blood Pressure 124/79 Pulse Oximetry 97 97 Oxygen Delivery Method Nasal Cannula Oxygen Flow Rate 2 08/01/24 15:27 08/01/24 15:29 08/01/24 15:30 Temperature 98.5 F Pulse Rate 100 H Respiratory Rate 20 Blood Pressure 125/75 124/79 126/73 Pulse Oximetry 100 Oxygen Delivery Method Room Air Oxygen Flow Rate 08/01/24 15:30 08/01/24 15:35 08/01/24 15:35 Temperature Pulse Rate 100 H 106 H Respiratory Rate 19 14 Blood Pressure 152/84 H Pulse Oximetry 96 97 Oxygen Delivery Method Oxygen Flow Rate 08/01/24 15:40 08/01/24 15:40 08/01/24 15:45 Temperature Pulse Rate 96 H 92 H Respiratory Rate 16 17 Blood Pressure 141/75 H Pulse Oximetry 88 L 95 Oxygen Delivery Method Nasal Cannula Oxygen Flow Rate 6 08/01/24 15:45 08/01/24 15:50 08/01/24 15:50 Temperature Pulse Rate 91 H Respiratory Rate 19 Blood Pressure 135/79 128/74 Pulse Oximetry 97 Oxygen Delivery Method Nasal Cannula Oxygen Flow Rate 2 08/01/24 15:55 08/01/24 15:55 08/01/24 16:00 Temperature 97.3 F L Pulse Rate 90 89 Respiratory Rate 20 18 Blood Pressure 143/79 H Pulse Oximetry 94 Oxygen Delivery Method Oxygen Flow Rate 08/01/24 16:00 08/01/24 16:15 08/01/24 16:15 Temperature 97.7 F Pulse Rate 94 H Respiratory Rate 20 Blood Pressure 135/81 109/59 L Pulse Oximetry 95 Oxygen Delivery Method Room Air Oxygen Flow Rate 08/01/24 16:23 08/01/24 16:23 08/01/24 16:24 Temperature 97.5 F L Pulse Rate 91 H Respiratory Rate Blood Pressure 113/57 L 123/63 Pulse Oximetry 94 Oxygen Delivery Method Oxygen Flow Rate 08/01/24 16:24 08/01/24 16:30 08/01/24 16:30 Temperature 97.7 F 97.7 F Pulse Rate 92 H 90 Respiratory Rate 22 Blood Pressure 124/65 Pulse Oximetry 95 94 Oxygen Delivery Method Room Air Oxygen Flow Rate 08/01/24 16:40 08/01/24 16:40 08/01/24 17:00 Temperature 97.9 F 98.2 F Pulse Rate 88 99 H Respiratory Rate Blood Pressure 120/61 Pulse Oximetry 95 97 Oxygen Delivery Method Oxygen Flow Rate 08/01/24 17:01 08/01/24 17:01 08/01/24 17:30 Temperature 98.2 F 99.0 F Pulse Rate 96 H 86 Respiratory Rate Blood Pressure 149/68 H Pulse Oximetry 96 95 Oxygen Delivery Method Oxygen Flow Rate 08/01/24 17:31 08/01/24 17:31 08/01/24 18:00 Temperature 99.0 F 99.3 F Pulse Rate 85 81 Respiratory Rate 20 Blood Pressure 131/60 Pulse Oximetry 96 96 Oxygen Delivery Method Room Air Oxygen Flow Rate 08/01/24 18:03 08/01/24 18:03 Temperature 99.3 F Pulse Rate 80 Respiratory Rate 18 Blood Pressure 120/61 Pulse Oximetry 96 Oxygen Delivery Method Room Air Oxygen Flow Rate MDM - Seizure Lab Data 08/01/24 15:00 08/01/24 15:00 Labs: Lab Results 08/01/24 08/01/24 08/01/24 Range/Units 15:00 15:10 15:56 WBC 9.4 (4.5-11.0) X10^3/uL RBC 3.93 L (4.0-5.2) X10^6/uL Hgb 13.9 (12.0-16.0) g/dL Hct 40.7 (36-46) % MCV 103.6 H (80-100) fL MCH 35.3 H (26-34) PG MCHC 34.1 (30-36) % RDW 14.6 (11.6-14.8) % Plt Count 298 (150-400) X10^3/uL Neut % (Auto) 37.8 L (50-75) % Lymph % (Auto) 53.9 H (25-40) % Pepin % (Auto) 6.5 (3-14) % Eos % (Auto) 1.3 L (2-4) % Baso % (Auto) 0.5 (0-2) % Neut # (Auto) 3600 (3922-9858) /uL Lymph # (Auto) 5100 H (4450-2126) /uL Pepin # (Auto) 600 (0-900) /uL Eos # (Auto) 100 (0-450) /uL Baso # (Auto) 0 (0-100) /uL PT 11.5 (9.4-12.5) SECONDS INR 1.0 (0.9-1.3) APTT 34 (25.1-36.5) SECONDS Sodium 137 (137-145) mmol/L Potassium 3.5 (3.4-5.1) mmol/L Chloride 99 (98-107) mmol/L Carbon Dioxide 15 L (22-32) mmol/L BUN 5 L (7-17) mg/dL Creatinine 0.63 (0.52-1.04) mg/dL Estimated GFR > 60 (>60) mL/min BUN/Creatinine Ratio 7.9 (6-22) Glucose 85 (80-110) mg/dL Calcium 8.9 (8.4-10.2) mg/dL Total Bilirubin 0.3 (0.2-1.3) mg/dL AST 31 (14-36) IU/L ALT 21 (<35) IU/L Alkaline Phosphatase 103 (38-126) U/L Total Protein 7.8 (6.3-8.2) g/dL Albumin 4.8 (3.5-5.0) g/dL Globulin 3.0 (1.7-4.1) g/dL Albumin/Globulin Ratio 1.6 (1.0-2.8) Urine Color Yellow Urine Appearance Clear Urine pH 6.0 (4.5-8.0) Ur Specific [place] 1.020 (1.000-1.035) Urine Protein 1+ H (Negative) Urine Glucose (UA) Negative (Negative) g/dL Urine Ketones Negative (NEGATIVE) Urine Occult Blood 1+ H (Negative) Urine Nitrate Negative (Negative) Urine Bilirubin Negative (NEGATIVE) Urine Urobilinogen 1.0 (0.2) E.U./dL Ur Leukocyte Esterase 1+ H (NEGATIVE) Urine RBC 1-5/hpf (0-5/HPF) Urine WBC 5-10/hpf H (0-5/HPF) Ur Squamous Epith Cells 1-5 /hpf (0-5/HPF) Urine Bacteria Moderate (10-30) H (None) Ur Culture Indicated? Specimen cultured Vol Urine Centrifuged 10ml (spun) U Opiates 300ng/mL cut (Negative) Ur Oxycodone Screen (Negative) Urine Methadone Screen (Negative) Ur Barbiturates Screen (Negative) Carbamazepine 3.2 L (4.0-12.0) ug/mL U Tricyclic Antidepress (Negative) Ur Phencyclidine Scrn (Negative) Ur Amphetamines Screen (Negative) U Methamphetamines Scrn (Negative) Ur MDMA Scrn (Ecstasy) (Negative) U Benzodiazepines Scrn (Negative) Urine Cocaine Screen (Negative) U Marijuana (THC) Screen (Negative) Urine Specific [place] (Normal) Ethyl Alcohol < 10 ( - 10) mg/dL Ur Creatinine (Normal) SARS-CoV-2 (PCR) (Negative) Influenza A (RT-PCR) (NEGATIVE) Influenza B (RT-PCR) (NEGATIVE) RSV (PCR) (Negative) 08/01/24 08/01/24 Range/Units 16:06 16:17 WBC (4.5-11.0) X10^3/uL RBC (4.0-5.2) X10^6/uL Hgb (12.0-16.0) g/dL Hct (36-46) % MCV (80-100) fL MCH (26-34) PG MCHC (30-36) % RDW (11.6-14.8) % Plt Count (150-400) X10^3/uL Neut % (Auto) (50-75) % Lymph % (Auto) (25-40) % Pepin % (Auto) (3-14) % Eos % (Auto) (2-4) % Baso % (Auto) (0-2) % Neut # (Auto) (8344-1267) /uL Lymph # (Auto) (7640-6118) /uL Pepin # (Auto) (0-900) /uL Eos # (Auto) (0-450) /uL Baso # (Auto) (0-100) /uL PT (9.4-12.5) SECONDS INR (0.9-1.3) APTT (25.1-36.5) SECONDS Sodium (137-145) mmol/L Potassium (3.4-5.1) mmol/L Chloride (98-107) mmol/L Carbon Dioxide (22-32) mmol/L BUN (7-17) mg/dL Creatinine (0.52-1.04) mg/dL Estimated GFR (>60) mL/min BUN/Creatinine Ratio (6-22) Glucose (80-110) mg/dL Calcium (8.4-10.2) mg/dL Total Bilirubin (0.2-1.3) mg/dL AST (14-36) IU/L ALT (<35) IU/L Alkaline Phosphatase (38-126) U/L Total Protein (6.3-8.2) g/dL Albumin (3.5-5.0) g/dL Globulin (1.7-4.1) g/dL Albumin/Globulin Ratio (1.0-2.8) Urine Color Urine Appearance Urine pH Normal (4.5-8.0) Ur Specific [place] (1.000-1.035) Urine Protein (Negative) Urine Glucose (UA) (Negative) g/dL Urine Ketones (NEGATIVE) Urine Occult Blood (Negative) Urine Nitrate (Negative) Urine Bilirubin (NEGATIVE) Urine Urobilinogen (0.2) E.U./dL Ur Leukocyte Esterase (NEGATIVE) Urine RBC (0-5/HPF) Urine WBC (0-5/HPF) Ur Squamous Epith Cells (0-5/HPF) Urine Bacteria (None) Ur Culture Indicated? Vol Urine Centrifuged U Opiates 300ng/mL cut Negative (Negative) Ur Oxycodone Screen Negative (Negative) Urine Methadone Screen Negative (Negative) Ur Barbiturates Screen Negative (Negative) Carbamazepine (4.0-12.0) ug/mL U Tricyclic Antidepress Negative (Negative) Ur Phencyclidine Scrn Negative (Negative) Ur Amphetamines Screen Negative (Negative) U Methamphetamines Scrn Negative (Negative) Ur MDMA Scrn (Ecstasy) Negative (Negative) U Benzodiazepines Scrn Negative (Negative) Urine Cocaine Screen Negative (Negative) U Marijuana (THC) Screen Negative (Negative) Urine Specific [place] Normal (Normal) Ethyl Alcohol ( - 10) mg/dL Ur Creatinine Normal (Normal) SARS-CoV-2 (PCR) Negative (Negative) Influenza A (RT-PCR) Flu a negative (NEGATIVE) Influenza B (RT-PCR) Flu b negative (NEGATIVE) RSV (PCR) Negative (Negative) Point of Care Testing Glucose POC 86 ECG Data Attestation: I personally reviewed and interpreted this ECG as follows: Prior ECG tracings: available for review Interpretation: Sinus rhythm rate 87 CO 174 QRS 82 QTC of 450, left axis deviation anterior septal infarct age indeterminate. patient has prior from 10/24/2022 appears similar with a has been nonspecific change. [facility] Narrative Medical decision making narrative: 74-year-old female 2 witnessed seizures 1 here in the emergency department has a history of seizure disorder reportedly been taking her medication per EMR she was on carbamazepine daily. Patient's glucose in the field was 99, noted to be slightly tachycardic per EMS. Was still postictal by improving but had not returned to baseline before 2nd episode. Plan for head CT, labs, urine, evaluate for any infectious sources. Patient was loaded with Keppra as well as 4 mg of Zofran. Placed on end-tidal CO2 and monitor. She has been maintaining her airway this far. Labs show white count of 9.4 hemoglobin of 13.9 platelets of 298 predominance of lymphocytes. Coags are negative, CO2 is 15 BUN 5 creatinine 0.63 otherwise electrolytes are appropriate glucose is 85 LFTs are negative. ETOH is negative. Rapid drug screen is negative. Carbamazepine/Tegretol level was sent but is a send out lab and we will be pending. Urine shows 1+ protein 1+ occult blood 1+ leuks, 5-10 blood cells, 1-5 RBC 1-5 squamous moderate bacteria was sent for culture. Head CT no acute intracranial pathology moderate atrophy chronic ischemic changes. COVID/RSV/influenza is negative. Patient received a Sterling Blackburn here in the department. Had Versed 5mg just prior to going into room with EMS but I was at bedside when administered. Patient was potential UTI was given a dose of Rocephin. Also had her home oral carbamazepine dose after family arrived. Multiple rechecked patient's mentation has been improving she was becoming more alert still somewhat confused but now little bit conversant. 1723 patient continues to improve. She does follow with Neurology states he takes carbamazepine. States it has been a long time since she was had a seizure. Family arrived they note patient missed her carbamazepine last night sounds like she did not have a dose this morning either. She follows with a Dr. Castro in [place]. Call to Neurology at 5:[address] Auguste, neurology covering for Dr. Castro we will send out carbamazepine level but suspect missed doses in the setting of potential UTI. He feels comfortable patient returning home if no additional seizure activity follow up with primary care to follow up urine culture patient to follow up if needed if any additional changes to call back. Patient monitored for several more hours and appears to be at baseline. Patient's family has picked up her medications and now has them available for her. She did miss 2 doses total according to her daughter. Discharge Plan Departure Patient Disposition: Home Clinical Impression: Seizure Instructions: DI for Seizure Disorder -- Adult Activity Restrictions/Additional Instructions: Follow up with your physician and Neurology for recheck. You do have a carbamazepine or Tegretol level pending this is a send out lab. Let your physician know so they can follow up your level. I did talk with neurology team today. I suspect your seizure activity today was a combination of having a missed dose of your medication as well as urinary tract infection. Infection can lower your seizure threshold. Continue your carbamazepine as prescribed. Take oral antibiotics until completed. Prescription was sent to [facility] in [place]. Please return if you have any recurrent seizure activity, fevers, severe headaches, changes in mentation or confusion, persistent vomiting, new chest pain or shortness of breath, new swelling in extremities, abdominal pain or other new or concerning changes. Prescriptions: No Action mecobalamin (vitamin B12) 10,000 mcg recon soln 1,000 mcg IM .weekly Qty: 1 3RF Rx Instructions: 1,000 mcg IM ( x 4 weeks) pravastatin 40 mg tablet 40 mg PO DAILY Qty: 90 0RF carbamazepine 200 mg tablet 200 mg PO 2XD Qty: 60 2RF fluticasone propion-salmeterol [Advair HFA] 45-21 mcg/actuation HFA aerosol inhaler 2 puff inhalation BID Qty: 12 4RF fluoxetine 20 mg capsule 20 mg PO QAM Qty: 90 1RF levothyroxine 88 mcg tablet 88 mcg PO QAM Qty: 90 1RF alendronate 70 mg tablet 70 mg PO QWEEK Qty: 14 1RF albuterol sulfate 90 mcg/actuation HFA aerosol inhaler 2 puff inhalation Q6-8H Qty: 8.5 4RF (DME) insulin syringe-needle U-100 [Advocate Syringes] 0.3 mL 30 gauge x 5/16 syringe See Rx Instructions .Route Qty: 100 3RF Rx Instructions: As directed potassium chloride 10 mEq tablet extended release 10 meq PO DAILY Qty: 30 2RF acetaminophen 325 mg Tablet 650 mg PO Q6H PRN (Reason: Fever/Mild Pain (1-3)) Qty: 30 0RF hydrocodone-acetaminophen 5-325 mg Tablet 1 tab PO Q6-12H PRN (Reason: Pain, Moderate (4-6)) Qty: 20 0RF Referrals: Brett Castro MD [Non-Staff] - Samantha Cobb DO [Primary Care Provider] - Stand Alone Forms: Patient Portal/API/Survey
[2024-08-01] MEDS: levETIRAcetam 1,000 MG in SODIUM CHLORIDE 0.9% 100 ML 440 MG IV (15:23)
[2024-08-01] MEDS: ONDANSETRON 4 MG/2 ML INJ IV (15:24)
[2024-08-01 15:25] LABS: Add Manual Diff / Slide Review NO; Basophils Absolute Auto 0 /uL (0-100); Basophils Percent Auto 0.5 % (0-2); Eosinophils Absolute Auto 100 /uL (0-450); Eosinophils Percent Auto 1.3 % (2-4); Hematocrit 40.7 % (36-46); Hemoglobin 13.9 g/dL (12.0-16.0); Lymphocytes Absolute Auto 5100 /uL (1100-4500); Lymphocytes Percent Auto 53.9 % (25-40); Mean Corpuscular HGB Conc 34.1 % (30-36); Mean Corpuscular Hemoglobin 35.3 PG (26-34); Mean Corpuscular Volume 103.6 fL (80-100); Monocytes Absolute Auto 600 /uL (0-900); Monocytes Percent Auto 6.5 % (3-14); Neutrophils Absolute Auto 3600 /uL (1500-7000); Neutrophils Percent Auto 37.8 % (50-75); Platelet Count 298 X10^3/uL (150-400); Red Blood Cell Count 3.93 X10^6/uL (4.0-5.2); Red Cell Distribution Width 14.6 % (11.6-14.8); White Blood Cell Count 9.4 X10^3/uL (4.5-11.0)
[2024-08-01 15:35] LABS: Prothrombin Time 11.5 SECONDS (9.4-12.5)
[2024-08-01 15:38] LABS: PTT Partial Thromboplastin Tim 34 SECONDS (25.1-36.5)
[2024-08-01 15:43] LABS: Alanine Aminotransferase 21 IU/L (<35); Albumin 4.8 g/dL (3.5-5.0); Albumin Globulin Ratio 1.6 (1.0-2.8); Alkaline Phosphatase 103 U/L (38-126); Aspartate Aminotransferase 31 IU/L (14-36); BUN Creatinine Ratio 7.9 (6-22); Bilirubin Total 0.3 mg/dL (0.2-1.3); Blood Urea Nitrogen 5 mg/dL (7-17); Calcium 8.9 mg/dL (8.4-10.2); Carbon Dioxide 15 mmol/L (22-32); Chloride 99 mmol/L (98-107); Estimated Glomerular Filt Rate > 60 mL/min (>60); Ethanol (ETOH) < 10 mg/dL; Glucose 85 mg/dL (80-110); HEMOLYSIS < 15 (0-50); Potassium 3.5 mmol/L (3.4-5.1); Sodium 137 mmol/L (137-145); Total Protein 7.8 g/dL (6.3-8.2)
[2024-08-01] MEDS: SODIUM CHLORIDE 0.9% 1,000 ML 1000 ML IV (15:58)
[2024-08-01 16:12] LABS: Appearance Urine UA CLEAR; Bilirubin Urine UA NEGATIVE (NEGATIVE); Color Urine UA YELLOW; Glucose Urine UA NEGATIVE (Negative); Ketones Urine UA NEGATIVE (NEGATIVE); Leukocyte Esterase Urine UA 1+ (NEGATIVE); Nitrite Urine UA NEGATIVE (Negative); Occult Blood Urine UA 1+ (Negative); Protein Urine UA 1+ (Negative)
[2024-08-01 16:32] LABS: Ur Creatinine Normal (Normal); Ur Specific Gravity Normal (Normal); Urine Amphetamines Negative (Negative); Urine Barbiturates Negative (Negative); Urine Benzodiazepines Negative (Negative); Urine Cocaine Negative (Negative); Urine MDMA Negative (Negative); Urine Methadone Negative (Negative); Urine Methamphetamines Negative (Negative); Urine Opiates Negative (Negative); Urine Oxycodone Negative (Negative); Urine Phencyclidine Negative (Negative); Urine THC Negative (Negative); Urine Tricyclic Antidepressant Negative (Negative); Urine pH Normal (Normal)
--- NOTE | 2024-08-01 16:53 | PC.NURSE ---
Pt is fully awake. Disoriented to place and situation but is alert and fully responsive. Complains of pain everywhere. Provider River made aware of patient change.
[2024-08-01 16:56] LABS: Influenza A - CEPHEID Flu A NEGATIVE (NEGATIVE); Influenza B - CEPHEID Flu B NEGATIVE (NEGATIVE); Respiratory Syncytial Virus Negative (Negative)
--- NOTE | 2024-08-01 16:58 | DI.RAD.S_ITS ---
PROCEDURE: XR CHEST 1V INDICATIONS: seizure TECHNIQUE: One view of the chest was acquired. COMPARISON: [facility], CR, XR CHEST 1V, 10/24/2022, 21:28. FINDINGS: Surgical changes and devices: None. Lungs and pleura: Lungs are clear. No pleural effusions or pneumothorax. Mediastinum: Mediastinal contours appear normal. Heart size is normal. Bones and chest wall: No suspicious bony lesions. Overlying soft tissues appear unremarkable. IMPRESSION: No acute cardiopulmonary abnormality is seen. Approved by: Rafat Cook M.D. on 08/01/2024 at 16:49
[2024-08-01 17:02] LABS: Urine Volume 10mL (spun)
[2024-08-01 17:03] LABS: Bacteria Urine Moderate (10-30); Culture Indicated Urine Specimen Cultured; RBC Urine 1-5/HPF (0-5/HPF); Squamous Epithelial Cell Urine 1-5 /HPF (0-5/HPF); WBC Urine 5-10/HPF (0-5/HPF)
[2024-08-01 17:04] LABS: COVID-19 CEPHEID 4-PLEX PCR Negative (Negative)
--- NOTE | 2024-08-01 17:05 | PC.NURSE ---
Daughter, Concha, at bedside. Daughter reports patient was turning around in circles then she assisted her to the ground and she began seizing from her upper body little twitches and foam at mouth. Pt is reporting RIGHT sided pain in her chest and clutching at it. Reports tender to touch. Provider made aware.
[2024-08-01] MEDS: cefTRIAXone 1,000 MG in SODIUM CHLORIDE 0.9% 100 ML 200 MG IV (17:25)
--- NOTE | 2024-08-01 17:35 | PC.NURSE ---
1700: Provider River directs patient to take home med carbamazepine 200mg. Pt normally takes carbamazepine 200mg BID. Pt takes one dose of home med as per provider River verbal direction.
[2024-08-02 08:09] LABS: Carbamazepine Tegretol Level 3.2 ug/mL (4.0-12.0)
== END 2024-08-01 21:19 | disposition home or self-care (01) ==
PROVIDERS: Emergency Provider Emergency Medicine; PCP Family Medicine
DX: G40.909 Epilepsy, unspecified, not intractable, without status epilepticus (principal); R00.0 Tachycardia, unspecified
CPT/HCPCS: 0241U; 70450; 71045; 80053; 80156; 80305; 80320; 81001; 82962; 85025; 85610; 85730; 87086; 93005; 96361; 96365; 96367; 96375; 99284; J0696; J1953; J2405

== ENCOUNTER → 2025-02-10 13:11 | Outpatient (CLI) | payer MEDICARE, MEDICAID, SELFPAY ==
--- NOTE | 2025-02-10 13:13 | DI.CT.S_ITS ---
PROCEDURE: CT LUNG LOW DOSE SCREENING INDICATIONS: lung screening TECHNIQUE: Noncontrast 2.0-2.5 mm thick sections acquired from the pulmonary apices to the posterior costophrenic angles. 7 mm thick axial MIP, and 5 mm coronal and sagittal reformats were then acquired. For radiation dose reduction, the following was used: automated exposure control, adjustment of mA and/or kV according to patient size. COMPARISON: None. FINDINGS: Image quality: Diagnostic. Lower Neck: No enlarged lymph nodes. Thyroid: No thyroid nodules which require sonographic follow up, per consensus guidelines. Axillae: No enlarged lymph nodes. Chest Wall: Unremarkable. Bones: Partially visualized, chronic, L1 compression deformity. No acute compression deformity. Lungs and Pleura: No pneumothorax or pleural effusions. Bilateral anterior right upper lobe and left upper lobe predominant fine , reticular, subpleural thickening and scarring with associated cystic changes concerning for developing fibrosis. No social did nodularity. Calcified granuloma in the anterior right upper lobe. No suspicious pulmonary nodule. Scattered areas of central bronchiectasis, greatest in the perihilar lungs. Heart: Heart size is normal. No pericardial effusion. Triple-vessel coronary artery atherosclerotic calcifications. Thoracic Vessels: The aorta and pulmonary arteries demonstrate normal size. Mediastinum and Meg: No enlarged lymph nodes. Esophagus: No wall thickening. No hiatal hernia. Upper Abdomen: Visualized upper abdomen solid organs and bowel loops appear normal. IMPRESSION: No suspicious pulmonary nodules. 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 Consider correlation with pulmonary function tests and or pulmonology consultation. LUNG-RADS 1S; continued annual screening, if eligible. Clinically Significant Non-pulmonary Findings: Moderate to severe coronary artery calcifications. Correlate with risk factors, symptoms, and consider cardiology referral versus lifestyle modifications. Dictated by: Demond Blackwood M.D. on 02/10/2025 at 14:13 Approved by: Demond Blackwood M.D. on 02/10/2025 at 14:21
== END ==
LOC: CT 13:12
PROVIDERS: PCP Family Medicine; Referring Provider Family Medicine; Visit Provider Family Medicine
DX: Z12.2 Encounter for screening for malignant neoplasm of respiratory organs (principal); F17.210 Nicotine dependence, cigarettes, uncomplicated; I25.10 Atherosclerotic heart disease of native coronary artery without angina pectoris
CPT/HCPCS: 71271

== ENCOUNTER → 2025-05-05 11:15 | Outpatient (CLI) | payer MEDICARE, MEDICAID, SELFPAY | PROVIDERS: PCP Family Medicine; Referring Provider Family Medicine; Visit Provider Family Medicine | DX: R06.00 Dyspnea, unspecified (principal); J43.2 Centrilobular emphysema; F17.210 Nicotine dependence, cigarettes, uncomplicated; J45.909 Unspecified asthma, uncomplicated | CPT/HCPCS: 94060; 94726; 94729 ==